=== PATIENT | female | born 1995 ===

== ENCOUNTER 2021-11-15 20:44 | Emergency (ER) | payer SELFPAY ==
--- NOTE | ~2021-11-15 | XR_ITS ---
EXAMINATION: XR PORTABLE CHEST CLINICAL INFORMATION: Cough COMPARISON: None. TECHNIQUE: AP portable upright view of the chest FINDINGS: Mild elevation of the right hemidiaphragm. Lungs are clear. No consolidation, pneumothorax, or pleural effusion. Cardiac and mediastinal contours are normal. Pulmonary vasculature is unremarkable. Osseous structures are unremarkable. XR/XR chest 1V IMPRESSION: No acute cardiopulmonary findings
--- NOTE | ~2021-11-15 | CT_ITS ---
EXAMINATION: CT ANGIOGRAM OF THE CHEST WITH AND WITHOUT CONTRAST (CT PULMONARY ANGIOGRAM FOR PE) CLINICAL INFORMATION: Reason for Exam sob, positive dimer. COMPARISON: Chest radiograph 11/15/2021. TECHNIQUE: Prior to contrast administration, noncontrast localization images were obtained. Subsequently, multidetector volumetric imaging was performed from the thoracic inlet to below the diaphragms following the administration of 80 mL Omnipaque 350 intravenous contrast. No contrast reaction reported Sagittal, coronal, and MIP oblique sagittal reformatted images were obtained on the CT workstation, uploaded to PACS, and reviewed. This CT examination was performed using dose optimization techniques as appropriate, variously including the following: *Automated exposure control *Adjustment of mA and/or kV according to patient size (this includes techniques or standardized protocols for targeted exams where dose is matched to indication/reason for exam; i.e. extremities or head) *Use of iterative reconstruction technique Total exam dose-length product 590 mGy-cm FINDINGS: QUALITY OF STUDY/CONTRAST BOLUS: Satisfactory. PULMONARY ARTERIES: No intraluminal filling defects are noted in the visualized pulmonary arterial segments to suggest the presence of pulmonary bullae. The main and central pulmonary arteries are normal in caliber. THORACIC AORTA: No aneurysm or dissection. Lungs and pleura: No pleural effusions or pneumothoraces. No focal pulmonary consolidation. Mediastinum: The thyroid is partially included in the image [id number] and is normal in appearance. No mediastinal lymphadenopathy. Normal heart size. No pericardial thickening or fluid collections. The incidentally visualized abdominal structures, partial visualization of a 2 cm diameter eggshell calcification within the gallbladder lumen consistent with cholelithiasis. Normal appearance of the adrenal glands. Skeletal structures: No skeletal abnormalities noted aside from mild multilevel chronic appearing anterior endplate osteophytosis of the visualized spine. CHEST WALL: No axillary lymphadenopathy. CT/CT angio chest PE protocol IMPRESSION: *CT pulmonary angiogram negative for pulmonary emboli. *No acute cardiopulmonary abnormalities identified. Lungs clear. *Cholelithiasis. VTE: negative
[2021-11-15 20:51] VITALS: BP 147/81; PULSE 88; RESP 20; TEMP 36.5; O2SAT 99; BMI 49.6
--- NOTE | 2021-11-15 21:12 | ED_ITS ---
HPI - URI/Sore Throat General Chief Complaint: Upper Respiratory Symptoms Stated Complaint: Flu like symptoms/Vomiting Time Seen by Provider: 11/15/21 21:06 Source: patient Mode of arrival: ambulatory Limitations: no limitations History of Present Illness HPI Narrative: This is a 26-year-old female no significant medical history presenting to the emergency department with complaints of body aches, dry cough, nausea, sore throat, myalgias since Thursday 4 days ago. Patient tells me she went to urgent care on Thursday, 3 days ago where she tested positive for influenza A. She tells me that she was started on Tamiflu that day however she still feels ?horrible and she feels like she is not getting better. She also reports associated shortness of breath and chest discomfort. Patient has no history of cardiac issues, DVT, PE. Denies hormone use. Denies long travel. She also denies fevers, chills, vomiting, abdominal pain, headache, dizziness, vision changes, weakness. Patient eating and drinking. MD elicited complaint: fever and sore throat Onset (ago): day(s) (4) Consistency: constant Able to tolerate fluids by mouth: Yes Exacerbating factors: nothing Relieving factors: nothing Associated symptoms: chest pain and shortness of breath Treatments prior to arrival: none Related Data Previous Rx's Medication Instructions Recorded albuterol sulfate 90 mcg/actuation 2 inh INHALATION Q4-6H PRN #1 ea 11/16/21 breath activated powder inhaler benzonatate 100 mg capsule 100 mg PO BID PRN #20 cap 11/16/21 Allergies Allergy/AdvReac Type Severity Reaction Status Date / Time No Known Allergies Allergy Unverified 04/05/20 19:47 [No Known Allergies*] Review of Systems Review of Systems: Constitutional : No Weight loss, No Fever, No Chills, + Fatigue, N+o Malaise ENT/Mouth : + sore throat, No Rhinorrhea Eyes: No Eye Pain, No Swelling, No Redness Cardiovascular : + Chest Pain, + SOB, No Dyspnea on Exertion, No Orthopnea, No Edema, No Palpitations Respiratory : No Cough, No Sputum, No Wheezing Gastrointestinal : No Nausea, No Vomiting, No Diarrhea, No Constipation, No abdominal Pain, No Hematochezia, No Melena Genitourinary : No Dysuria, No Urinary Frequency, No Hematuria, Musculoskeletal : No joint pain, No Myalgias, No Joint Swelling Skin : No Skin Lesions, No rash Neuro : No Weakness, No Numbness, No Dizziness, No Headache All other systems reviewed and are negative Yes all other systems are reviewed and are negative [facility] Past Medical History Attestation statement: The following information was validated with the patient. Source: old records reviewed and nursing notes reviewed Social History Social History Alcohol intake: never Patient Tobacco Use Status: Never used Tobacco Advance Directives: No Advance Directives Information Provided: No Physical Exam Vital Signs: Vital Signs: Last Vital Signs Temp 97.7 F 11/15/21 20:51 Pulse 79 11/15/21 23:25 Resp 18 11/15/21 23:25 BP 132/65 11/15/21 23:25 Pulse Ox 97 11/15/21 23:25 BMI result Body Mass Index 49.6 Vital signs stable Appearance: Alert.? Oriented X3.? No acute distress.? Head: Normocephalic, atraumatic, no step-offs or deformities Eyes: Pupils equal, round and reactive to light.? ENT: Pharynx normal.? Neck: Normal inspection.? Neck supple.? CVS: Normal heart rate and rhythm.? Pulses normal.? Respiratory: No respiratory distress.? Breath sounds normal.? Abdomen: Soft and nontender.? Skin: Skin warm and dry.? Normal skin color.? Normal skin turgor.? Extremities: No lower extremity edema.? No calf ttp, negative Ronnie bilaterally 5/5 strength to bilateral upper and lower extremities Back: No midline tenderness, no C-spine tenderness, full range of motion, no CVA tenderness bilaterally Neuro: Oriented X 3.? No motor deficit.? No sensory deficit. CN 2-12 intact Course Reevaluation(s) Reevaluation #1: CBC with a slight microcytic anemia, patient tells me that she gets very heavy m enses and she is currently on her menses right now. She is not complaining of dizziness, weakness or fatigue. I advised her to follow-up with her PCP for repeat lab work. She tells me she is currently having heavy vaginal bleeding which is normal for her, denies vomiting blood or blood per rectum, trauma, abdominal pain. No acute electrolyte abnormalities requiring intervention. Troponin negative. COVID, strep negative. Patient's D-dimer slightly elevated therefore a CTA was obtained, CTA showed no evidence of pulmonary emboli, no acute cardiopulmonary abnormalities. VT negative. Incidental finding of cholelithiasis noted. At this time patient will be discharged home symptoms likely secondary to influenza however, patient has been having a dry cough from most to week therefore will give her medication for cough, and an inhaler. Time: 00:23 MDM - URI/Sore Throat MDM Narrative Medical decision making narrative: 2119 26 yo f presents w/ flu like sx X4 days PE benign Plan- dimer, trop, ekg, labs, cxr Will rule out pna, pe, acs although all unlikley. Medical Records Attestation: I reviewed the patient's medical records. Lab Data Attestation: I reviewed the patient's lab results. Result diagrams: 11/15/21 22:49 11/15/21 22:49 Labs: Lab Results 11/15/21 11/15/21 11/15/21 Range/Units 21:38 21:38 22:49 WBC 7.1 (4.8-10.8) X10*3/uL RBC 4.48 (4.20-5.50) X10*6/uL Hgb 8.5 L (12.0-16.0) g/dl Hct 29.9 L (37.0-47.0) % MCV 66.7 L (80.0-98.0) fL MCH 19.0 L (27.0-33.0) pg MCHC 28.4 L (31.0-35.0) g/dl RDW 18.2 H (11.0-16.0) % Plt Count 322 (160-400) X10*3/uL MPV 8.7 L (9.4-12.3) fL Immature Gran % (Auto) 0.3 (0.0-0.4) % Neut % (Auto) 63.8 (45-73) % Lymph % (Auto) 27.9 (20-40) % Dickson % (Auto) 6.9 (2-11) % Eos % (Auto) 0.8 (0-4) % Baso % (Auto) 0.3 (0-2) % Lymph # (Auto) 2.0 (1.2-4.9) X10*3/uL Dickson # (Auto) 0.5 (0.1-1.2) X10*3/uL Eos # (Auto) 0.1 (0.0-0.4) X10*3/uL Baso # (Auto) 0.0 (0.0-0.2) X10*3/uL Abs Immat Gran (auto) 0.02 (0.00-0.03) X10*3/uL Absolute Neuts (auto) 4.6 (2.0-8.3) x10*3/uL Absolute Nucleated RBC 0.000 (0.0-0.012) X10*3/uL Nucleated RBC % (auto) 0.0 (0.0-0.2) /100WBC D-Dimer High Sensitivty NG/ML Sodium (135-145) mmol/L Potassium (3.3-5.1) mmol/L Chloride (96-108) mmol/L Carbon Dioxide (22-29) mmol/L Anion Gap (12-20) BUN (9-16) mg/dL Creatinine (0.5-1.4) mg/dL Estim Creat Clear Calc Estimated GFR Random Glucose (60-115) mg/dL Calcium (8.4-10.2) mg/dL Magnesium (1.6-2.6) mg/dL Total Bilirubin (0.0-1.0) mg/dL AST (5-31) U/L ALT (0-31) U/L Alkaline Phosphatase (39-117) U/L Troponin I High Sens (<3.5-17.0) ng/L Total Protein (6.5-8.0) g/dL Albumin (3.5-5.0) g/dL COVID-19 ([facility]AC[facility]) Negative (Negative) COVID-19 Clin Com See Note S. pyogenes GrpA ANA Negative (Negative) 11/15/21 11/15/21 11/15/21 Range/Units 22:49 22:49 22:49 WBC (4.8-10.8) X10*3/uL RBC (4.20-5.50) X10*6/uL Hgb (12.0-16.0) g/dl Hct (37.0-47.0) % MCV (80.0-98.0) fL MCH (27.0-33.0) pg MCHC (31.0-35.0) g/dl RDW (11.0-16.0) % Plt Count (160-400) X10*3/uL MPV (9.4-12.3) fL Immature Gran % (Auto) (0.0-0.4) % Neut % (Auto) (45-73) % Lymph % (Auto) (20-40) % Dickson % (Auto) (2-11) % Eos % (Auto) (0-4) % Baso % (Auto) (0-2) % Lymph # (Auto) (1.2-4.9) X10*3/uL Dickson # (Auto) (0.1-1.2) X10*3/uL Eos # (Auto) (0.0-0.4) X10*3/uL Baso # (Auto) (0.0-0.2) X10*3/uL Abs Immat Gran (auto) (0.00-0.03) X10*3/uL Absolute Neuts (auto) (2.0-8.3) x10*3/uL Absolute Nucleated RBC (0.0-0.012) X10*3/uL Nucleated RBC % (auto) (0.0-0.2) /100WBC D-Dimer High Sensitivty 372 NG/ML Sodium 140 (135-145) mmol/L Potassium 3.4 (3.3-5.1) mmol/L Chloride 106 (96-108) mmol/L Carbon Dioxide 27 (22-29) mmol/L Anion Gap 10 L (12-20) BUN 7 L (9-16) mg/dL Creatinine 0.62 (0.5-1.4) mg/dL Estim Creat Clear Calc 178.5 Estimated GFR > 60 Random Glucose 94 (60-115) mg/dL Calcium 8.9 (8.4-10.2) mg/dL Magnesium 2.1 (1.6-2.6) mg/dL Total Bilirubin 0.2 (0.0-1.0) mg/dL AST 28 (5-31) U/L ALT 25 (0-31) U/L Alkaline Phosphatase 93 (39-117) U/L Troponin I High Sens < 3.5 (<3.5-17.0) ng/L Total Protein 6.9 (6.5-8.0) g/dL Albumin 3.7 (3.5-5.0) g/dL COVID-19 (KACY) (Negative) COVID-19 Clin Com S. pyogenes GrpA ANA (Negative) ECG Data Attestation: I personally reviewed and interpreted this ECG as follows: ECG interpretation date: 11/15/21 ECG interpretation time: 23:21 Prior ECG tracings: available for review Critical Care Time Critical Care Time Critical Care Time: No Discharge Plan Discharge Clinical Impression: Cough, Shortness of breath, Anemia Patient Disposition: Home, Self-Care Instructions: Acute Cough (ED), Shortness of Breath (ED) Additional Instructions: Take your medications as prescribed. Follow-up with your primary care provider this week, I advised you get for repeat laboratory studies to look at your hemoglobin and hematocrit. Follow-up with OBGYN for heavy menses. Return to the emergency department with new or worsening symptoms. Such as fevers, chills, chest pain, shortness of breath, nausea, vomiting, dizziness, headache, vision changes, lethargy In case of emergency call 911 Your CTA showed no evidence of blood clots in the lungs. Your cardiac enzymes and EKG appeared normal. You were noted to be slightly anemic however you did report heavy vaginal bleeding from your menses which is normal for you I advised he follow up with OBGYN and your PCP. If at any point you become lightheaded, if he were bleeding through more than 2 pads per hour, weakness, vision changes or dizziness it is important that you be re-evaluated. Your COVID test and strep test were negative. I will send medication to her pharmacy for cough. Pl ease take this as prescribed. Increase meat in your diet and take over the counter iron supplements/vitamins. You in take ibuprofen every 6 hours, Tylenol every 4 as needed for body aches and pains or fever. Prescriptions: New albuterol sulfate 90 mcg/actuation aerosol powdr breath activated 2 inh inhalation Q4-6H PRN (Reason: shortness of breath or wheezing) Qty: 1 0RF benzonatate 100 mg capsule 100 mg PO BID PRN (Reason: cough) Qty: 20 0RF Referrals: Physician,None [Primary Care Provider] - 2 days Stand Alone Forms: Work/School Release
[2021-11-15 21:32] VITALS: O2SAT 100
[2021-11-15] MEDS: Ondansetron ODT 4 MG TAB.RAPDIS TRANSLINGU (21:35)
[2021-11-15 22:03] LABS: COVID-19 Test Negative (Negative); Strep A Nucleic Acid Negative (Negative)
--- NOTE | 2021-11-15 22:30 | ECG_ITS ---
Test Reason : SOB Blood Pressure : / mmHG Vent. Rate : 070 BPM Atrial Rate : 070 BPM P-R Int : 154 ms QRS Dur : 090 ms QT Int : 390 ms P-R-T Axes : 029 000 011 degrees QTc Int : 421 ms Normal sinus rhythm Minimal voltage criteria for LVH, may be normal variant ( R in aVL ) Borderline ECG No previous ECGs available Referred By: Katiana Szymanski Electronically Signed By:TERA ESTRADA
[2021-11-15 22:54] LABS: MANUAL DIFF FLAG NO
[2021-11-15 22:55] LABS: Basophils Percent Auto 0.3 % (0-2); Eosinophils Absolute Auto 0.1 X10*3/uL (0.0-0.4); Eosinophils Percent Auto 0.8 % (0-4); Hematocrit 29.9 % (37.0-47.0); Hemoglobin 8.5 g/dl (12.0-16.0); Imm Gran Abs Auto 0.02 X10*3/uL (0.00-0.03); Imm Gran Pct Auto 0.3 % (0.0-0.4); Lymphocytes Percent Auto 27.9 % (20-40); Mean Corpuscular HGB Conc 28.4 g/dl (31.0-35.0); Mean Corpuscular Volume 66.7 fL (80.0-98.0); Mean Platelet Volume 8.7 fL (9.4-12.3); Monocytes Absolute Auto 0.5 X10*3/uL (0.1-1.2); Monocytes Percent Auto 6.9 % (2-11); Neutrophils Absolute Auto 4.6 x10*3/uL (2.0-8.3); Neutrophils Percent Auto 63.8 % (45-73); Platelet Count 322 X10*3/uL (160-400); Red Blood Count 4.48 X10*6/uL (4.20-5.50); Red Cell Distribution Width 18.2 % (11.0-16.0); White Blood Count 7.1 X10*3/uL (4.8-10.8)
[2021-11-15 23:06] LABS: D Dimer High Sensitivity 372 NG/ML
[2021-11-15 23:14] LABS: Alanine Aminotransferase 25 U/L (0-31); Albumin Level 3.7 g/dL (3.5-5.0); Alkaline Phosphatase 93 U/L (39-117); Anion Gap 10 (12-20); Aspartate Amino Transferase 28 U/L (5-31); Bilirubin Total 0.2 mg/dL (0.0-1.0); Blood Urea Nitrogen 7 mg/dL (9-16); Calcium 8.9 mg/dL (8.4-10.2); Carbon Dioxide 27 mmol/L (22-29); Chloride 106 mmol/L (96-108); Creatinine Clr Calc Pharmacy 178.5; Estimated Glomerular Filt Rate > 60; Glucose Random 94 mg/dL (60-115); Magnesium 2.1 mg/dL (1.6-2.6); Potassium 3.4 mmol/L (3.3-5.1); Sodium 140 mmol/L (135-145); Total Protein 6.9 g/dL (6.5-8.0)
[2021-11-15 23:17] LABS: Troponin-I High Sensitivity < 3.5 ng/L (<3.5-17.0)
[2021-11-15 23:25] VITALS: BP 132/65; PULSE 79; RESP 18; O2SAT 97
[2021-11-15] MEDS: iohexoL 350 MG/ML 100 ML INFUS..BTL IV (23:52)
[2021-11-16 00:38] VITALS: BP 115/58; PULSE 80; RESP 18; TEMP 36.7; O2SAT 98
[2021-11-16] MEDS: Albuterol Sulfate 90 MCG 8 GM INHALER 2 PUFF INHALE (00:39)
== END 2021-11-16 00:44 | disposition home or self-care (01) ==
PROVIDERS: Physician Assistant; Emergency Provider Emergency Medicine Emergency Medical Services
DX: R05.9 Cough, unspecified (principal); M79.10 Myalgia, unspecified site; R06.02 Shortness of breath; R07.89 Other chest pain; D64.9 Anemia, unspecified; Z20.822 Contact with and (suspected) exposure to COVID-19; Z79.899 Other long term (current) drug therapy
CPT/HCPCS: 36415; 71045; 71275; 80053; 83735; 84484; 85025; 85379; 87635; 87651; 93005; 99284; 99285; Q9967

== ENCOUNTER → 2022-02-07 12:13 | Outpatient (BNVA) | payer OTHER, SELFPAY | PROVIDERS: Visit Provider Internal Medicine | DX: M25.532 Pain in left wrist (principal); M67.432 Ganglion, left wrist | CPT/HCPCS: 29125; 73110; 99203 ==

== ENCOUNTER → 2022-02-17 15:18 | Outpatient (BNVA) | payer OTHER, SELFPAY | PROVIDERS: Visit Provider Internal Medicine | DX: M25.531 Pain in right wrist (principal); M67.40 Ganglion, unspecified site | CPT/HCPCS: 99213 ==

== ENCOUNTER → 2023-09-29 15:10 | Outpatient (BNVA) | payer OTHER, SELFPAY | PROVIDERS: Visit Provider Surgery ==

== ENCOUNTER → 2023-11-02 10:00 | Outpatient (BNVA) | payer OTHER, SELFPAY | PROVIDERS: Visit Provider Surgery ==

== ENCOUNTER 2023-11-03 07:56 | Outpatient (REF) | payer OTHER, SELFPAY ==
--- NOTE | ~2023-11-03 | XR_ITS ---
EXAMINATION: XR CHEST CLINICAL INFORMATION: Gastroesophageal reflux disease without esophagitis. COMPARISON: CT angiogram chest 11/15/2021. Single view radiograph chest 11/15/2021. TECHNIQUE: 2 views of the chest were obtained. FINDINGS: Lung volumes remain low. There is no gross pneumothorax. Heart size is normal. No pleural effusion. No focal consolidation to suggest pneumonia. XR/XR chest 2V IMPRESSION: Low lung volumes. No evidence of pneumonia.
--- NOTE | 2023-11-03 08:03 | ECG_ITS ---
Test Reason : gerd Blood Pressure : / mmHG Vent. Rate : 061 BPM Atrial Rate : 061 BPM P-R Int : 146 ms QRS Dur : 084 ms QT Int : 388 ms P-R-T Axes : 056 009 025 degrees QTc Int : 390 ms Normal sinus rhythm Normal ECG When compared with ECG of 15-NOV-2021 22:45, No significant change was found Referred By: Jeanmarie Shultz Electronically Signed By:TERA ESTRADA
[2023-11-03 08:18] LABS: MANUAL DIFF FLAG NO
[2023-11-03 09:09] LABS: Basophils Percent Auto 0.8 % (0-2); Eosinophils Absolute Auto 0.1 X10*3/uL (0.0-0.4); Eosinophils Percent Auto 1.7 % (0-4); Imm Gran Abs Auto 0.02 X10*3/uL (0.00-0.03); Imm Gran Pct Auto 0.4 % (0.0-0.4); Lymphocytes Absolute Auto 1.3 X10*3/uL (1.2-4.9); Lymphocytes Percent Auto 24.3 % (20-40); Mean Corpuscular Hemoglobin 19.6 pg (27.0-33.0); Mean Corpuscular Volume 67.5 fL (80.0-98.0); Monocytes Absolute Auto 0.4 X10*3/uL (0.1-1.2); Monocytes Percent Auto 6.6 % (2-11); Neutrophils Absolute Auto 3.5 x10*3/uL (2.0-8.3); Neutrophils Percent Auto 66.2 % (45-73); Platelet Count 243 X10*3/uL (160-400); Red Blood Count 4.59 X10*6/uL (4.20-5.50); Red Cell Distribution Width 19.1 % (11.0-16.0); White Blood Count 5.3 X10*3/uL (4.8-10.8)
[2023-11-03 09:10] LABS: Estimated Average Glucose 108 mg/dL; Hemoglobin A1c % 5.4 % (<6.0)
[2023-11-03 10:09] LABS: Alanine Aminotransferase 14 U/L (0-31); Albumin Level 3.9 g/dL (3.5-5.0); Alkaline Phosphatase 57 U/L (39-117); Anion Gap 11 (12-20); Aspartate Amino Transferase 16 U/L (5-31); Bilirubin Total 0.4 mg/dL (0.0-1.0); Blood Urea Nitrogen 11 mg/dL (9-16); C Reactive Protein 0.46 mg/dL (< or = 0.50); Calcium 9.4 mg/dL (8.4-10.2); Carbon Dioxide 25 mmol/L (22-29); Chloride 107 mmol/L (96-108); Cholesterol 125 mg/dL (<200); Estimated Glomerular Filt Rate > 60; Glucose Random 86 mg/dL (60-115); HDL Cholesterol 40 mg/dL (>40); Iron 15 mcg/dL (30-160); LDL Cholesterol Calculated 75 mg/dL (<100); Percent Iron Saturation 5 % (15-50); Potassium 3.8 mmol/L (3.3-5.1); Sodium 139 mmol/L (135-145); Total Iron Binding Capacity 320 mcg/dL (228-428); Total Protein 7.2 g/dL (6.5-8.0); Triglycerides 53 mg/dL (<150); Unsaturated Iron Binding 305 ug/dL
[2023-11-03 10:19] LABS: Ferritin 3 ng/mL (10-122); Insulin 7 uU/mL (2-29); TSH reflex Free T4 0.88 uIU/mL (0.32-4.0); Vitamin D 25-OH Total 20.9 ng/mL (>30)
[2023-11-03 10:26] LABS: Folate 8.6 ng/mL (> or = 4.0); Vitamin B12 926 pg/mL (200-900)
[2023-11-06 01:29] LABS: Zinc 69 mcg/dL (60-130)
[2023-11-06 20:32] LABS: Vitamin A 27 mcg/dL (38-98)
[2023-11-08 14:53] LABS: Vitamin B1 8 nmol/L (8-30)
== END 2023-11-03 07:57 | disposition home or self-care (01) ==
LOC: HO.LAB 07:56
PROVIDERS: Visit Provider Surgery
DX: K21.9 Gastro-esophageal reflux disease without esophagitis (principal); E66.01 Morbid (severe) obesity due to excess calories; J45.909 Unspecified asthma, uncomplicated; M19.90 Unspecified osteoarthritis, unspecified site
CPT/HCPCS: 36415; 71046; 80053; 80061; 82306; 82607; 82728; 82746; 83036; 83525; 83540; 84425; 84443; 84590; 84630; 85025; 86140; 93005

== ENCOUNTER → 2023-11-03 08:03 | Outpatient (BNV) | payer OTHER, SELFPAY | PROVIDERS: Visit Provider Internal Medicine | DX: K21.9 Gastro-esophageal reflux disease without esophagitis (principal) | CPT/HCPCS: 93010 ==

== ENCOUNTER 2023-11-16 15:49 | Outpatient (AMB) | payer OTHER, SELFPAY ==
--- NOTE | 2023-11-16 15:47 | MHC.WMTHER ---
Intake Intake Visit Reasons: TV BH Intake Allergies No Known Allergies [No Known Allergies*] Allergy (Verified 11/02/23 16:43) PFSH Medical History (Updated 11/16/23 @ 16:03 by Maday Chi) DJD (degenerative joint disease) Asthma GERD (gastroesophageal reflux disease) Morbid obesity Surgical History (Updated 09/29/23 @ 15:20 by Rita Escobar CMA) No history of previous surgery Family History (Updated 09/29/23 @ 15:21 by Rita Escobar CMA) Mother Diabetes Father No problems noted. Social History Alcohol intake: never Patient Tobacco Use Status: Never used Tobacco Behavioral Health Assessment Weight Management Therapy Therapy Notes Details Patient is looking to have weight loss surgery to help herself feel better. Also improved health outcomes. She is currently not in therapy and denied ever being so. She denied any problems with drugs or alcohol. Later reported smoking 3 joints and also using a vaporizer. he had quit for 5 years in the past. Presenting Concerns Referral Source provider Reason for referral weight loss surgery evaluation Precipitating Event obesity Living Situation Current Living Situation Relative's/Guardian's Yunior At risk of losing current housing? No Satisfied with current living situation? Yes Comments Pt lives at her parents house and her sister also resides there. Food/Weight/Diet Expectations of change weight loss and maintenance History/Relationship with food Patient stated that she was eating fast food about everyday, also would skip meals in the morning and then overeat at night. History/Relationship with weight Patient reported struggling with her weight since around age 18. History/Relationship with dieting some informal dieting in the past and lost 10lbs. Binge Eating Do you frequently eat large amounts of food in short periods of time, not feeling physically hungry? Yes Do you feel out of control when you eat a large amount of food in a short period of time? No Do you eat large amounts of food rapidly and typically alone? Yes Night Eating Do you wake up at least once during the night to eat? No If you wake up in the night, do you find that it is necessary to eat something in order to fall back asleep? No Do you have little or no appetite in the morning and feel very hungry in the evening, often overeating between dinner and when you go to bed? Yes Social History Parental/Familial dip dyer obligations none Developmental history and status no issues Social support mom, two sisters, and ex partner all have had gastric sleeve surgeries. Cultural/Ethnic information Legal Involvement and History Current or historical involvement with the legal system? none reported Education Highest grade completed high school Preferred learning style Auditory, Verbal, Written, Learn by doing and Visual Currently enrolled in educational program? No Interested in further educational program? 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 No Meaningful activities gym, Financial Situation Describe current financial situation Comfortable Service Service? No Mental Health and Addiction Treatment Current/Past substance abuse? Yes Comments smokes cannabis daily Current/Past addictive behavior concerns? No Medical and Physical Health Summary Physical exam in the last year? Yes Pain Screening Current pain? No Pain in the last few months? No Medications Is the patient compliant with medications? Not applicable Does the patient have Purvis Guardian in place? Not applicable Does the patient use complimentary health approaches? No Trauma/Abuse History History of trauma? No Questionnaires PHQ-9 Over the last 2 weeks, how often have you been bothered by any of the following problems? 1. Little interest or pleasure in doing things: several days 2. Feeling down, depressed, or hopeless: several days 3. Trouble falling or staying asleep, or sleeping too much: several days 4. Feeling tired or having little energy: not at all 5. Poor appetite or overeating: not at all 6. Feeling bad about yourself - or that you are a failure or have let yourself or your family down: more than half the days 7. Trouble concentrating on things, such as reading the newspaper or watching television: not at all 8. Moving or speaking so slowly that other people could have noticed. Or the opposite - being so fidgety or restless that you have been moving around a lot more than usual: not at all 9. Thoughts that you would be better off or of hurting yourself in some way: not at all Total score: 5 Source: Developed by Drs. Piter Campos, Sherrie Eckert, Arnol Sanders and colleagues, with an educational juan from [employer]. Assessment & Plan Assessment & Plan (1) Cannabis abuse: Code(s): F12.10 - Cannabis abuse, uncomplicated (2) Morbid obesity: Code(s): E66.01 - Morbid (severe) obesity due to excess calories Plan Patient will be seen in person visit on 11/29 for further evaluation. Could not hear her well during call due to background noise. Also no paperwork scanned in the chart. Telehealth Telehealth Telehealth Platform: Telephone Location of provider rendering services: other Location of patient: other Patient Identification confirmed using: Name, : Yes Telehealth method: voice only Patient verbally consented to treatment: Yes Patient verbally consented to billing insurance company: Yes Patient informed of any privacy concerns related to visit: Yes Minutes spent on Phone/Video with Pt.: 30 Coding Level of Care Code Tele Psy Diag Eval (30214) Diagnoses Cannabis abuse F12.10 Morbid obesity E66.01 Time Spent (min) 30
== END 2023-11-16 16:05 | disposition home or self-care (01) ==
LOC: HO.HBST 15:49
PROVIDERS: Visit Provider Counselor Mental Health
DX: F12.10 Cannabis abuse, uncomplicated (principal); E66.01 Morbid (severe) obesity due to excess calories
CPT/HCPCS: 90791

== ENCOUNTER → 2023-11-16 15:49 | Outpatient (BNVA) | payer OTHER, SELFPAY | PROVIDERS: Visit Provider Counselor Mental Health ==

== ENCOUNTER 2023-11-23 07:46 | Outpatient (REF) | payer OTHER, SELFPAY ==
--- NOTE | ~2023-11-23 | US_ITS ---
EXAMINATION: US COMPLETE ABDOMEN WITH LIVER ELASTOGRAPHY CLINICAL INFORMATION: Obesity. COMPARISON: None available. TECHNIQUE: Real-time imaging of the abdominal viscera. Noninvasive ultrasound liver fibrosis assessment is performed using Td ElastPQ point quantification shear wave elastography (2D-SWE) with a C5-2 MHz transducer. Multiple elastography samples are obtained. FINDINGS: PANCREAS: Limited. The visualized pancreatic neck and proximal body are normal in appearance. The remainder of the pancreas is obscured from visualization by the overlying bowel gas. ABDOMINAL AORTA: The proximal and distal aortic segments are normal in caliber. The mid segment is obscured by overlying bowel gas. INFERIOR VENA CAVA: Visualized portions are normal. LIVER: The liver demonstrates normal size, contour and mildly increased echogenicity. No focal lesion or intrahepatic biliary duct dilatation. The right lobe measures 14.0 cm in length. The left lobe measures 9.5 cm in length. Portal flow is towards the liver (hepatopetal). Shear wave liver elastography median stiffness is 1.96 m/s (reference: normal median stiffness is 1.3 m/s or less). IQR/median stiffness to assess sampling precision is 0.12 (reference: good quality data set is IQR/median stiffness of 0.15 or less). GALLBLADDER: There are shadowing gallstones, without gallbladder sludge, polyps, wall thickening or pericholecystic fluid. COMMON BILE DUCT: Normal in caliber measuring 0.3 cm in diameter. RIGHT KIDNEY: Normal. No hydronephrosis. No renal calculi or focal parenchymal lesions. The kidney measures 11.3 cm in maximum dimension. LEFT KIDNEY: Normal. No hydronephrosis. No renal calculi or focal parenchymal lesions. The kidney measures 11.0 cm in maximum dimension. SPLEEN: Normal. The spleen measures 12.2 cm in maximum dimension. FREE FLUID: None. US/US abdomen comp w elastography IMPRESSION: 1. There is mild generalized increase in hepatic echotexture, consistent with fatty infiltration or hepatocellular disease. Please correlate clinically. No focal hepatic mass or intrahepatic biliary dilatation is seen. 2. Liver elastography: Measuremensts are consistent with compensated advanced chronic liver disease. 3. There is cholelithiasis. 4. Technically limited ultrasound examination of the pancreas and abdominal great vessels. REFERENCE: Society of Radiologists in Ultrasound Liver Stiffness Thresholds (2020): LIVER STIFFNESS THRESHOLDS: *Liver Stiffness equal or less than 1.3 m/s: High probability of being normal. *Liver Stiffness less than 1.7 m/s: In the absence of other known clinical signs, rules out compensated advanced chronic liver disease. *Liver Stiffness 1.7-2.1 m/s: Suggestive of compensated advanced chronic liver disease but need further test for confirmation. *Liver Stiffness over 2.1 m/s: Rules in compensated advanced chronic liver disease. *Liver Stiffness over 2.4 m/s: Suggestive of clinically significant portal hypertension. QUALITY OF DATA SET: *IQR/Median value equal or less than 0.15 implies a quality data set. *IQR/Median value over 0.15 implies a poor quality data set. SIGNIFICANT CHANGE FROM PRIOR EXAM: Significant change if liver stiffness measurement is 10% or greater from prior exam. OTHER CONSIDERATIONS: The stage of liver fibrosis may be overestimated in the setting of acute hepatitis, liver inflammation, elevated liver function tests, hepatic vascular congestion, obstructive cholestasis, non-fasting state, and infiltrative diseases such as amyloidosis and lymphoma. In some patients with NAFLD, the liver stiffness thresholds for compensated advanced chronic liver disease may be lower. In causes other than viral hepatitis and NAFLD, liver stiffness thresholds are not well established.
== END 2023-11-23 07:47 | disposition home or self-care (01) ==
LOC: HO.US 07:46
PROVIDERS: Visit Provider Surgery
DX: K21.9 Gastro-esophageal reflux disease without esophagitis (principal); E66.01 Morbid (severe) obesity due to excess calories; J45.909 Unspecified asthma, uncomplicated
CPT/HCPCS: 76700; 76981

== ENCOUNTER 2023-11-25 06:25 | Day surgery (SDC) | payer OTHER, SELFPAY ==
[2023-11-23 11:03] VITALS: BMI 44.3
--- NOTE | 2023-11-23 14:42 | HO.ANESPROP2 ---
Documented by User: Teresa Shell NP 11/23/23 14:43 HPI - Anesthesia Eval Consult details Narrative: 28yo F for Upper Endoscopy [facility] Active Problems Active Problems: All Active Problems Vitamin A deficiency (Acute) Cannabis abuse (Acute) Vitamin D deficiency (Acute) DJD (degenerative joint disease) (Acute) Asthma (Acute) GERD (gastroesophageal reflux disease) (Acute) Morbid obesity (Acute) Past Medical History Medical History DJD (degenerative joint disease) Asthma GERD (gastroesophageal reflux disease) Morbid obesity Family History Family History Mother Diabetes Father No problems noted. Surgical History Surgical History No history of previous surgery Social History Social History Alcohol intake: never Patient Tobacco Use Status: Never used Tobacco Use of substances other than those prescribed or required for medical reasons: No Are you DNR?: No Advance Directives: No Advance Directives Information Provided: Yes Meds Allergies Allergy/AdvReac Type Severity Reaction Status Date / Time No Known Allergies Allergy Verified 11/25/23 06:53 [No Known Allergies*] Home Medications ?Medication ?Instructions ?Recorded ?Confirmed ?Last Taken ?Type famotidine 40 mg tablet 40 mg PO DAILY 11/02/23 11/25/23 11/24/23 History Exam Height,Weight and Vital Signs: Height 5 ft 3 in Weight 113.398 kg Assessment and Plan Assessment Anesthesia Assessment: Chart Reviewed Documented by User: Giovana Rojas MD 11/25/23 07:19 [facility] Past Medical History Medical History DJD (degenerative joint disease) Asthma GERD (gastroesophageal reflux disease) Morbid obesity Family History Family History Mother Diabetes Father No problems noted. Surgical History Surgical History No history of previous surgery History of Problems with Anesthesia: No Social History Social History Alcohol intake: never Patient Tobacco Use Status: Never used Tobacco Use of substances other than those prescribed or required for medical reasons: No Are you DNR?: No Advance Directives: No Advance Directives Information Provided: Yes Meds Allergies Allergy/AdvReac Type Severity Reaction Status Date / Time No Known Allergies Allergy Verified 11/25/23 06:53 [No Known Allergies*] Home Medications ?Medication ?Instructions ?Recorded ?Confirmed ?Last Taken ?Type famotidine 40 mg tablet 40 mg PO DAILY 11/02/23 11/25/23 11/24/23 History Exam Airway Mallampati Class: II TM Dist: >3cm Neck ROM: Full Loose/Missing/Broken Teeth: No Heart: RRR Lungs: CTA Assessment and Plan Assessment Anesthesia Assessment: Anesthesia Plan Discussed Final Anesthetic Review History of Problems with Anesthesia: No NPO: Yes ASA Class: III Final Preanesthetic Review: Meds/Allgs Chart Reviewed, Consent Obtained/Reviewed and Anes Risks/Benef Reviewed Patient Risk: Intermediate Procedure Risk: Intermediate Anesthetic Plan Anesthetic Plan: MAC: Disposition: Standard PACU
[2023-11-25 06:43] VITALS: BMI 40.2
[2023-11-25 06:57] LABS: UPreg QC Valid YES
[2023-11-25 06:58] LABS: Urine Pregnancy NEGATIVE (NEGATIVE)
[2023-11-25 07:03] VITALS: BP 125/69; PULSE 65; RESP 16; TEMP 35.7; O2SAT 98
[2023-11-25] MEDS: Lactated Ringers 1,000 ML 80 ML IVCONT (07:05)
--- NOTE | 2023-11-25 07:48 | MHC.SHP ---
Pre-Procedural Eval Section A - 24 Hr Update-Section A only Date of Service: 11/25/23 The patient is an INPATIENT: No The patient has been examined within 24 hours of the surgical procedure. The History & Physical has been completed within 30 days and I have reviewed it.: No Section B - Complete if H&P > 30 days Chief Complaint: Morbid (severe) obesity due to excess calories Details of Present Illness: GERD Relevant Family History (Specify if Yes): No Relevant Social History: None Present Medications: None Medical History: No relevant PMH History of Previous Operations: No relevant previous surgery Allergies: Allergies Allergy/AdvReac Type Severity Reaction Status Date / Time No Known Allergies Allergy Verified 11/25/23 06:53 [No Known Allergies*] Review of Systems Sugical H&P ROS: Negative: Constitution, Cardiovascular, Respiratory, Neurological, Psychiatric, Hem-Onc, Allergic/Immunologic, Gastrointestinal, Genitourinary, Musculoskeletal, Integumentary, Endocrine and Eyes/Ears/Nose/Throat Exam Surgical H&P Exam: Normal: HEENT, Normal: Heart, Normal: Lungs, Normal: Extremities, Normal: Abdomen, Normal: Skin and Normal: Neurological Plan Diagnosis/Plan: Unchanged (EGD to assess etiology of GERD. Risks of bleeding and perforation were discussed with the patient and he is in agreement with the plan.) I have reviewed the history and physical and performed a pertinent physical examination on my patient. No changes have occurred unless specified. Time Spent With Patient Time: Total time managing care of this patient today ____ minutes.
--- NOTE | 2023-11-25 08:10 | PM.OP ---
Brief Operative Note Date of Service: 11/25/23 Pre-op diagnosis: GERD Post-op diagnosis: same Procedure: PROCEDURE DATE: 11/25/2023 PREOPERATIVE DIAGNOSIS: GERD POSTOPERATIVE DIAGNOSIS: ?Same as above. 1) normal endoscopy PROCEDURE: Eikrvllh-ichpuz-mehkhrreypes with biopsies Surgeon: Cecilio Shultz M.D.. Ph.D. Physicist [place]: None ? Anesthesia: IV sedation Estimated blood loss: ?Minimal FINDINGS AND PROCEDURE: ? OPERATIVE INDICATIONS: ?The patient is a 28 year old female known to me who is interested in bariatric surgery. The patient has GERD. Based on this information I recommended an upper endoscopy to evaluate the patient's symptoms. Risks and complications of the surgery were discussed with the patient in advance particularly the possibility of perforation or bleeding that may require surgical intervention. The patient understood the risks and was in agreement with the plan. ? PROCEDURE: After informed consent was obtained by the patient, the patient was ?transferred to the Operating Room and was placed in the supine position.? After successful induction of IV sedation, a mouth block was inserted and the patient was placed in the left lateral decubitus position. An upper endoscopy was performed next, the oropharynx and esophagus appeared within the normal limits. There was no hiatal hernia. The z-line was smooth. Two biopsies were obtained from the distal esophagus 2-3 cm proximal to the GE junction and two additional biopsies from the GE junction. The stomach was entered and it appeared to be of normal size. There was no gastritis. There was no stricture or ulcer. A biopsy was obtained from the gastric fundus and antrum. No significant bleeding was noted from any of the biopsy sites. The scope was then advanced into the duodenum which appeared to be normal as well. Retroflexion of the scope revealed a normal GE junction. At that point the duodenum ?and the stomach were decompressed and the scope was withdrawn from the patient's mouth. The patient extubated and was transferred in stable condition to the Recovery Room for further care. I was present and performed all steps of the procedure. There were no residents to assist with this case. Adrian Shultz M.D., Ph.D. Surgeon: Jeanmarie Shultz MD Anesthesia: MAC Was an Physicist [place] used for this Procedure?: No Estimated blood loss (mL): 0 IV fluids (mL): 400 Urine output (mL): 0 (No Nation to record output) Pathology: other (1) antrum x1, 2) fundus x1, 3) GE junction x2, 4) distal esophagus x2) Condition: stable Disposition: PACU
[2023-11-25 08:16] VITALS: BP 118/65; PULSE 56; RESP 14; TEMP 36.1; O2SAT 98
[2023-11-25 08:41] VITALS: BP 128/75; PULSE 53; RESP 16; TEMP 36.2; O2SAT 100
== END 2023-11-25 08:54 | disposition home or self-care (01) ==
PROVIDERS: Nurse Practitioner; Visit Provider Surgery
PROC: 0DJ08ZZ Inspection of Upper Intestinal Tract, Via Natural or Artificial Opening Endoscopic (ICD-10-PCS; CPT 43235; principal; 2023-11-25 07:30)
DX: K21.9 Gastro-esophageal reflux disease without esophagitis (principal); E66.01 Morbid (severe) obesity due to excess calories; Z68.42 Body mass index [BMI] 45.0-49.9, adult; J45.909 Unspecified asthma, uncomplicated; M19.90 Unspecified osteoarthritis, unspecified site; Z79.899 Other long term (current) drug therapy
CPT/HCPCS: 43239; 81025; 88305; 88313; 88342; J1596; J2250; J2704

== ENCOUNTER → 2023-11-25 06:25 | Outpatient (BNV) | payer OTHER, SELFPAY | PROVIDERS: Visit Provider Surgery | DX: E66.01 Morbid (severe) obesity due to excess calories (principal); Z68.41 Body mass index [BMI] 40.0-44.9, adult; K21.9 Gastro-esophageal reflux disease without esophagitis | CPT/HCPCS: 43239 ==

== ENCOUNTER 2023-12-15 15:19 | Outpatient (AMB) | payer OTHER, SELFPAY ==
--- NOTE | 2023-12-15 14:11 | A.OFFWM_ITS ---
Intake Intake Visit Reasons: (TV) f/u Allergies No Known Allergies [No Known Allergies*] Allergy (Verified 11/25/23 06:53) FORMERLY [facility] Medical History DJD (degenerative joint disease) Asthma GERD (gastroesophageal reflux disease) Morbid obesity Surgical History No history of previous surgery Family History Mother Diabetes Father No problems noted. Social History Alcohol intake: never Patient Tobacco Use Status: Never used Tobacco Behavioral Health Assessment Weight Management Therapy Therapy Notes Details Patient is looking to have weight loss surgery to help herself feel better. Also improved health outcomes. She is currently not in therapy and denied ever being so. She denied any problems with drugs or alcohol. Later reported smoking 3 joints and also using a vaporizer. he had quit for 5 years in the past. Presenting Concerns Referral Source provider Reason for referral weight loss surgery evaluation Precipitating Event obesity Living Situation Current Living Situation Relative's/Guardian's [place] At risk of losing current housing? No Satisfied with current living situation? Yes Comments Pt lives at her parents house and her sister also resides there. Food/Weight/Diet Expectations of change weight loss and maintenance History/Relationship with food Patient stated that she was eating fast food about everyday, also would skip meals in the morning and then overeat at night. History/Relationship with weight Patient reported struggling with her weight since around age 18. History/Relationship with dieting some informal dieting in the past and lost 10lbs. Binge Eating Do you frequently eat large amounts of food in short periods of time, not feeling physically hungry? Yes Do you feel out of control when you eat a large amount of food in a short period of time? No Do you eat large amounts of food rapidly and typically alone? Yes Night Eating Do you wake up at least once during the night to eat? No If you wake up in the night, do you find that it is necessary to eat something in order to fall back asleep? No Do you have little or no appetite in the morning and feel very hungry in the evening, often overeating between dinner and when you go to bed? 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 Cultural/Ethnic information Legal Involvement and History Current or historical involvement with the legal system? none reported Education Highest grade completed high school Preferred learning style Auditory, Verbal, Written, Learn by doing and Visual Currently enrolled in educational program? No Interested in further educational program? 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 No Meaningful activities gym, Financial Situation Describe current financial situation Comfortable Service Service? No Mental Health and Addiction Treatment Current/Past substance abuse? Yes Comments smokes cannabis daily Current/Past addictive behavior concerns? No Medical and Physical Health Summary Physical exam in the last year? Yes Pain Screening Current pain? No Pain in the last few months? No Medications Is the patient compliant with medications? Not applicable Does the patient have Purvis Guardian in place? Not applicable Does the patient use complimentary health approaches? No Trauma/Abuse History History of trauma? No Questionnaires PHQ-9 Over the last 2 weeks, how often have you been bothered by any of the following problems? 1. Little interest or pleasure in doing things: not at all 2. Feeling down, depressed, or hopeless: not at all 3. Trouble falling or staying asleep, or sleeping too much: several days 4. Feeling tired or having little energy: not at all 5. Poor appetite or overeating: not at all 6. Feeling bad about yourself - or that you are a failure or have let yourself or your family down: several days 7. Trouble concentrating on things, such as reading the newspaper or watching television: not at all 8. Moving or speaking so slowly that other people could have noticed. Or the opposite - being so fidgety or restless that you have been moving around a lot more than usual: not at all 9. Thoughts that you would be better off or of hurting yourself in some way: not at all Total score: 2 Source: Developed by Drs. Piter Campos, Sherrie Eckert, Arnol Sanders and colleagues, with an educational juan from [employer]. Binge Eating Scale Group 1 A. I don't feel self-conscious about my wt. or body size when I'm with others. B. I feel concerned about how I look to others, but it normally does not make me fell disappointed with myself C. I do get self-conscious about my appearance and wt. which makes me feel disappointed in myself. D. I feel very self-conscious about my wt. and frequently I feel intense shame and disgust for myself. I try to avoid social contacts because of my self-consciousness. Response Group 1: D Group 2 A. I don't have any difficulty eating slowly in the proper manner. B. Although I seem to gobble down foods, I don't end up feeling stuffed because of eating to much. C. At times, I tend to eat quickly and then, I feel uncomfortably full afterw ards. D. I have the habit of bolting down my food, without really chewing it. When this happens I usually feel uncomfortably stuffed because I've eaten to much. Response Group 2: C Group 3 A. I feel capable to control my eating urges when I want to. B. I feel like I have failed to control my eating more than the average person. C. I feel utterly helpless when it comes to feeling in control of my eating urges. D. Because I feel so helpless about controlling my eating I have become very desperate about trying to get control. Response Group 3: A Group 4 A. I don't have the habit of eating when I'm bored. B. I sometimes eat when I'm bored, but often I'm able to get busy and get my mind off food. C. I have a regular habit of eating when I'm bored, but occasionally, I can use some other activity to get my mind off eating. D. I have a strong habit of eating when I'm bored. Nothing seems to help me breath the habit. Response Group 4: A Group 5 A. I'm usually physically hungry when I eat something. B. Occasionally, I eat something on impulse even though I really am not hungry. C. I have the regular habit of eating foods, that I might not really enjoy, to satisfy a hungry feeling even though physically, I don't need the food. D. Although I'm not physically hungry, I get a hungry feeling in my mouth that only seems to be satisfied when I eat a food, like sandwich, that fills my mouth. Sometimes, when I eat the food to satisfy my mouth hunger, I then spit the food out so I won't gain weight. Response Group 5: A Group 6 A. I don't feel any guilt or self-hate after I overeat. B. After I overeat, occasionally I feel guilt or self-hate. C. Almost all the time I experience strong guilt or self-hate after I overeat. Response Group 6: B Group 7 A. I don't lose total control of my eating when dieting even after periods when I overeat. B. Sometimes when I eat a forbidden food on a diet, I feel like I blew it and eat even more. C. Frequently, I have the habit of saying to myself, I've blown it now, why not go all the way, when I overeat on a diet. When that happens I eat more. D. I have a regular habit of starting a strict diets for myself but I break the diets by going on an eating binge. My life seems to be either a feast or famine. Response Group 7: B Group 8 A. I rarely eat so much food that I feel uncomfortably stuffed afterwards. B. Usually about once a month, I each such a quantity of food, I end up feeling very stuffed. C. I have regular periods during the month when I eat large amounts of food, either at mealtime or at snacks. D. I eat so much food that I regularly feel quite uncomfortable after eating and sometimes a bit nauseous. Response Group 8: C Group 9 A. My level of calorie intake does not go up very high or go down very low on a regular basis. B. Sometimes after I overeat, I will try to reduce my caloric intake to almost nothing to compensate for the excess calories I've eaten. C. I have a regular habit of overeating during the night. It seems that my routine is not to be hungry in the morning but overeat in the evening. D. In my adult years, I have had week-long periods where I practically starve myself. This follows periods when I overeat. It seems I live a life of either feast or famine. Response Group 9: D Group 10 A. I usually am able to stop eating when I want to. I know when enough is enough. B. Every so often, I experience a compulsion to eat which I can't seem to co ntrol. C. Frequently, I experience strong urges to eat which I seem unable to control, but at other times I can control my eating urges. D. I feel incapable of controlling urges to eat. I have a fear of not being able to stop eating voluntarily. Response Group 10: A Group 11 A. I don't have any problem stopping eating when I feel full. B. I usually can stop eating when I feel full but occasionally overeat leaving me feeling uncomfortably stuffed. C. I have a problem stopping eating once I start and usually I feel uncomfortably stuffed after I eat a meal. D. Because I have a problem not being able to stop eating when I want, I sometimes have to induce vomiting to relieve my stuffed feeling. Response Group 11: A Group 12 A. I seem to eat just as much when I'm with others, Family social gatherings as when I'm by myself. B. Sometimes, when I'm with other persons, I don't eat as much as I want to eat because I'm self-conscious about my eating. C. Frequently, I eat only a small amount of food when others are present, because I'm very embarrassed about my eating. D. I feel so ashamed about overeating that I pick times to overeat when I know no one will see me. I feel like a closet eater. Response Group 12: A Group 13 A. I eat three meals a day with only an occasional between meal snack. B. I eat 3 meals a day, but I also normally snack between meals. C. When I am snacking heavily, I get in the habit of skipping regular meals. D. There are regular periods when I seem to be continually eating, with no planned meals. Response Group 13: B Group 14 A. I don't think much about trying to control unwanted eating urges. B. At least some of the time, I feel my thoughts are pre-occupied with trying to control my eating urges. C. I feel that frequently I spend much time thinking about how much I ate or about trying not to eat anymore. D. It seems to me that most of my waking hours are pre-occupied by thoughts about eating or not eating. I feel like I'm constantly struggling not to eat. Response Group 14: C Group 15 A. I don't think about food a great deal. B. I have strong craving for food but they last only for brief periods of time. C. I have days when I can't seem to think about anything else but food. D. Most of my days seem to be pre-occupied with thoughts about food. I feel like I live to eat. Response Group 15: B Group 16 A. I usually know whether or not I'm physically hungry. I take the right portion of food to satisfy me. B. Occasionally, I feel uncertain about knowing whether or not I'm physically hungry. A these times it's hard to know how much food I should take to satisfy me. C. Even though I might know how many calories I should eat, I don't have any idea what is a normal amount of food for me. Response Group 16: B Binge Eating Score: 17 Score less than 17 Minimal Risk Score between 18-26 Moderate Risk Score between 27-46 High Risk Assessment & Plan Assessment & Plan (1) Cannabis abuse: Code(s): F12.10 - Cannabis abuse, uncomplicated (2) Morbid obesity: Code(s): E66.01 - Morbid (severe) obesity due to excess calories Plan Patient reported doing well, loosing weight, has more energy, some depression but has improved. She is cleared for surgery when ready. Telehealth Telehealth Telehealth Platform: Telephone Location of provider rendering services: other Location of patient: address on file Patient Identification confirmed using: Name, : Yes Telehealth method: voice only Patient verbally consented to treatment: Yes Patient verbally consented to billing insurance company: Yes Patient informed of any privacy concerns related to visit: Yes Minutes spent on Phone/Video with Pt.: 20 Coding Level of Care Code Tele Psytx 30 mins ([id number]) Diagnoses Cannabis abuse F12.10 Morbid obesity E66.01 Time Spent (min) 20
== END 2023-12-15 16:09 | disposition home or self-care (01) ==
LOC: HO.HBST 15:19
PROVIDERS: Visit Provider Counselor Mental Health
DX: F12.10 Cannabis abuse, uncomplicated (principal); E66.01 Morbid (severe) obesity due to excess calories
CPT/HCPCS: 90832

== ENCOUNTER → 2023-12-15 15:19 | Outpatient (BNVA) | payer OTHER, SELFPAY | PROVIDERS: Visit Provider Counselor Mental Health | DX: F12.10 Cannabis abuse, uncomplicated (principal); E66.01 Morbid (severe) obesity due to excess calories ==

== ENCOUNTER 2023-12-18 09:49 | Outpatient (REF) | payer OTHER, SELFPAY ==
--- NOTE | ~2023-12-18 | FL_ITS ---
EXAMINATION: XR FLUOROSCOPY UPPER GI WITH AIR CLINICAL INFORMATION: Reflux COMPARISON: None TECHNIQUE: Fluoroscopic air contrast upper GI examination was performed utilizing standard techniques with thin and thick barium and effervescent granules. Numerous spot images were obtained. FINDINGS: Dual and single contrast images of the esophagus demonstrate normal caliber, contour, and mucosal pattern. No evidence of stricture, mass, or ulcerations identified. Esophageal peristalsis was normal. No evidence of hiatus hernia identified. Significant gastroesophageal reflux is seen up to the thoracic inlet. Dual contrast and single contrast images of the stomach demonstrated normal contour and mucosal pattern without evidence of mass, ulceration, or other abnormality. Contrast freely passed into the gastric antrum and duodenal bulb without delay. Single and air-contrast images of the duodenal bulb demonstrate no abnormality. The duodenal sweep has a normal appearance, course, and mucosal fold appearance. The imaged proximal jejunum has a normal fold pattern and caliber. FLUOROSCOPY TIME: 2 minutes 34 seconds Number of Spot Images: 9 Number of Cine: 11 DOSE AREA PRODUCT: 1997 uGy-m2 (microgray-meter squared) FL/FL upper GI w air IMPRESSION: 1. Severe gastroesophageal reflux. This procedure was performed by Emile Espinoza PA-C, and supervised by Dr. Cruz
== END 2023-12-18 09:50 | disposition home or self-care (01) ==
LOC: HO.XRAY 09:49
PROVIDERS: Visit Provider Surgery
DX: K21.9 Gastro-esophageal reflux disease without esophagitis (principal); E66.01 Morbid (severe) obesity due to excess calories; J45.909 Unspecified asthma, uncomplicated
CPT/HCPCS: 74246

== ENCOUNTER → 2023-12-18 09:50 | Outpatient (BNV) | payer OTHER, SELFPAY | PROVIDERS: Visit Provider Physician Assistant Surgical | DX: K21.9 Gastro-esophageal reflux disease without esophagitis (principal); E66.01 Morbid (severe) obesity due to excess calories; Z01.818 Encounter for other preprocedural examination | CPT/HCPCS: 74246 ==

== ENCOUNTER → 2024-01-04 07:22 | Outpatient (BNVA) | payer OTHER, SELFPAY | PROVIDERS: Visit Provider Surgery ==

== ENCOUNTER 2024-01-04 08:12 | Outpatient (AMB) | payer OTHER, SELFPAY ==
--- NOTE | 2024-01-03 08:53 | MHC.OFFVISWM ---
VS Expanded 01/03/24 08:54 Height 5 ft 3 in Weight 216 lb BMI 38.3 Body Fat % 48.1 Body Fat Mass 103.8 Fat Free Mass 111.9 Visceral Fat Rating 19 Body Water % 35.5 Body Water Mass 76.7 Basal Metabolic Rate/Score 1,727 Intake Visit Reasons: TV Pre Op LSG 01/13/24 Allergies No Known Allergies [No Known Allergies*] Allergy (Verified 01/03/24 08:59) Medication List - Last Reconciled 01/03/24 by Jeanmarie Shultz MD albuterol sulfate 90 mcg/actuation 2 inhalations inhalation Q4-6H PRN cholecalciferol (vitamin D3) 125 mcg PO DAILY famotidine 40 mg PO DAILY iron,carbonyl-vitamin C 65 mg iron- 125 mg (Vitron-C) 1 tab PO DAILY ondansetron 4 mg PO Q12H pantoprazole 40 mg PO DAILY polyethylene glycol 3350 17 grams PO DAILY sucralfate 10 mL PO BID vitamin A palmitate 10,000 units PO DAILY HPI HPI TV Pre Op LSG 01/13/24: Details: Start time: 2pm, End time: 2.30pm ?I spent 25 minutes speaking with the patient on the phone plus an additional 5 minutes reviewing and updating records for a total of 30 minutes HPI Comments Details: Overall weight loss: 34.8lbs, or 13.9% TBWL Is doing 2 premade Premier shakes (1/2 bottle each), 2 Fit Crunch protein bars and one meal (8 forks each) Exercise: Gym x3-4/wk for 400 calories per work-out [facility] Medical History (Updated 01/03/24 @ 09:01 by Jeanmarie Shultz MD) Obesity DJD (degenerative joint disease) Asthma GERD (gastroesophageal reflux disease) Morbid obesity Surgical History No history of previous surgery Family History Mother Diabetes Father No problems noted. Social History Alcohol intake: never Patient Tobacco Use Status: Never used Tobacco Physical Exam Vital Signs: BMI result Body Mass Index 38.3 Telehealth Telehealth Telehealth Platform: Telephone Location of provider rendering services: practice address Location of patient: address on file Patient Identification confirmed using: Name, : Yes Telehealth method: voice only Patient verbally consented to treatment: Yes Patient verbally consented to billing insurance company: Yes Patient informed of any privacy concerns related to visit: Yes Minutes spent on Phone/Video with Pt.: 30 Assessment & Plan Assessment & Plan (1) Obesity: Code(s): E66.9 - Obesity, unspecified Category: Medical Qualifiers: Body mass index: BMI 38.0-38.9 Obesity classification: adult class 2 (BMI 35 - 39.9) Obesity type: due to excess calories Serious obesity comorbidity presence: with serious comorbidity Qualified Code(s): E66.01 - Morbid (severe) obesity due to excess calories; Z68.38 - Body mass index [BMI] 38.0-38.9, adult Plan: 1. Plan for lap sleeve gastrectomy including upper GI endoscopy. All tests has been completed and reviewed and the patient is cleared for the surgery. ?If diaphragmatic or ventral hernias are present at time of surgery, these will be repaired laparoscopically as well. Risks and complications were discussed in detail including possible conversion to an open procedure, anastomotic leak, bleeding requiring transfusion, small bowel obstruction, , DVT and pulmonary embolism, cardiac, or pulmonary complications, as rn long term care complications such as anastomotic ulcer, insufficient weight loss and vitamin deficiencies. I emphasized the importance of close follow-up, adherence to instructions and good communication. So far she has proven to be an excellent communicator and very compliant with all our directions accomplishing a great weight loss. I believe that she is an excellent candidate and she is ready. 2. Preop prescriptions were provided and explained the purpose of each one. Need to be purchased preop. Start Pantoprazole now as you get it from the pharmacy, 1 pill per day. Sucralfate and Zofran are for after surgery as needed. 3. Bowel prep: please do 7 packets ?of Miralax mixing each one with a an 8oz glass of water, crystal light, gatorade zero, or propel ?on 01/11/24 and the same amount on 01/12/24. The Miralax you begin with one packet at a time in 8oz water or crystal light, gatorade zero, or propel ?as early in the day as you can and you do them back to back until you finish them. Continue the protein shakes during? the bowel prep. 4. Needs to purchase 1oz medicine cups . 5. Needs to purchase Children's liquid Tylenol for postop pain control. 6. Avoid aspirin, motrin, Advil, Aleve, Ibuprofen, Naproxyn. Tylenol is OK. 7. She needs to purchase the Celebrate 4:1 protein shakes from the hospital's gift shop. 8. Will do basic preop blood work-up any day between Thursday01/04/24 and Thursday01/08/24 fasting for 12 hours and is scheduled to see the Anesthesiologist prior to the day of surgery. 9. Importance of adherence to postop folllow-up and recommendations was underscored and she understands that. 10. Stop food and bars as of tomorrow 01/04/24 and continue with 5 premade Premier protein shakes (4oz Premier shakes mixed with 4oz almond milk) at 8am-10am, 11am-1pm, 2pm-4pm, 5pm-7pm and at 8pm-10pm 11. No soups, broths or V8 12. The patient's?medical?history has been reviewed and they are considered low risk for post op DVT and therefore DVT prophylaxis is not considered necessary. Travel after surgery was reviewed. The patient has not disclosed any travel plans during the first 30 days after surgery and they have been advised that within the first 30 days after surgery any bus, plane, train or car travel over 2 hours in duration is contraindicated due to the possibility of developing blood clots from immobility. Any travel, needs to include periods of ambulation of 10 minutes in duration every 2 hours.? Patient was instructed to discuss any plans for travel during this period with their bariatric surgeon.? 13. Please take at the day of surgery the following medications: NONE 14. Stop any control pills and don't use them for one month after surgery 15. Absolutely no smoking or vaping, or marijuana until the surgery and for at least the first 4 weeks. Only nicotine patches are allowed. 16. Send me weight measurements on Thursday01/08/24 and then on Thursday01/13/24 the day of surgery before you go to the hospital. 17. Avoid any steroids by mouth for any reason. Let me know if someone prescribes them to you 18. These instructions supersede anything else you read in the handbook, anything you watched in videos or classes or you were told by any other provider. If there is any conflict, you follow the above instructions and nothing else. Orders: Orders Hemoglobin A1c Today E66.9 - Obesity, unspecified C Reactive Protein Today E66.9 - Obesity, unspecified Complete Blood Count Auto Diff Today E66.9 - Obesity, unspecified Insulin Today E66.9 - Obesity, unspecified Type and Screen Today E66.9 - Obesity, unspecified TSH reflex Free T4 Today E66.9 - Obesity, unspecified Comprehensive Met. Panel Today E66.9 - Obesity, unspecified Lipid Panel Today E66.9 - Obesity, unspecified Partial Thromboplastin Time Today E66.9 - Obesity, unspecified Prothrombin Time INR Today E66.9 - Obesity, unspecified Vitamin A Today E50.9 - Vitamin A deficiency, unspecified, E55.9 - Vitamin D deficiency, unspecified Vitamin D 25-OH Total Today E50.9 - Vitamin A deficiency, unspecified, E55.9 - Vitamin D deficiency, unspecified Medications: New pantoprazole 40 mg PO DAILY 90 tabs 0RF K21.9 - Gastro-esophageal reflux disease without esophagitis sucralfate 10 mL PO BID 600 mL 2RF K21.9 - Gastro-esophageal reflux disease without esophagitis ondansetron Only take one every 12 hours as needed if you have nausea 4 mg PO Q12H 20 tabs 0RF nausea and vomiting R11.0 - Nausea polyethylene glycol 3350 Mix each measuring cup with 8oz of water, Crystal light, or Gatorade zero, or Propel and do 7 measuring cups on 01/11/24 and another 7 measuring cups on 01/12/24 17 grams PO DAILY 238 grams 0RF Z01.818 - Encounter for other preprocedural examination
[2024-01-03 08:54] VITALS: BMI 38.3
== END 2024-01-04 16:58 | disposition home or self-care (01) ==
LOC: HO.HBS 08:12
PROVIDERS: Visit Provider Surgery
DX: E66.01 Morbid (severe) obesity due to excess calories (principal); Z68.38 Body mass index [BMI] 38.0-38.9, adult
CPT/HCPCS: 99214

== ENCOUNTER 2024-01-13 06:16 | Inpatient (IN) | payer OTHER, SELFPAY ==
[2024-01-04 07:22] LABS: MANUAL DIFF FLAG NO
[2024-01-04 07:41] LABS: Partial Thromboplastin Time 29.1 SEC (26.0-36.8)
[2024-01-04 08:05] LABS: Basophils Absolute Auto 0.1 X10*3/uL (0.0-0.2); Basophils Percent Auto 0.7 % (0-2); Eosinophils Absolute Auto 0.1 X10*3/uL (0.0-0.4); Eosinophils Percent Auto 1.5 % (0-4); Hematocrit 38.1 % (37.0-47.0); Imm Gran Abs Auto 0.02 X10*3/uL (0.00-0.03); Imm Gran Pct Auto 0.3 % (0.0-0.4); Lymphocytes Absolute Auto 1.6 X10*3/uL (1.2-4.9); Lymphocytes Percent Auto 23.8 % (20-40); Mean Corpuscular HGB Conc 31.5 g/dl (31.0-35.0); Mean Corpuscular Hemoglobin 23.9 pg (27.0-33.0); Mean Corpuscular Volume 75.9 fL (80.0-98.0); Mean Platelet Volume 10.1 fL (9.4-12.3); Monocytes Absolute Auto 0.3 X10*3/uL (0.1-1.2); Monocytes Percent Auto 5.1 % (2-11); Neutrophils Absolute Auto 4.6 x10*3/uL (2.0-8.3); Neutrophils Percent Auto 68.6 % (45-73); Platelet Count 275 X10*3/uL (160-400); Red Blood Count 5.02 X10*6/uL (4.20-5.50); Red Cell Distribution Width 24.1 % (11.0-16.0); White Blood Count 6.7 X10*3/uL (4.8-10.8)
[2024-01-04 08:15] LABS: Estimated Average Glucose 91 mg/dL; Hemoglobin A1c % 4.8 % (<6.0)
[2024-01-04 08:33] LABS: Alanine Aminotransferase 13 U/L (0-31); Albumin Level 3.9 g/dL (3.5-5.0); Alkaline Phosphatase 53 U/L (39-117); Anion Gap 11 (12-20); Aspartate Amino Transferase 15 U/L (5-31); Bilirubin Total 0.3 mg/dL (0.0-1.0); Blood Urea Nitrogen 13 mg/dL (9-16); C Reactive Protein 0.48 mg/dL (< or = 0.50); Calcium 9.7 mg/dL (8.4-10.2); Carbon Dioxide 27 mmol/L (22-29); Chloride 107 mmol/L (96-108); Cholesterol 139 mg/dL (<200); Estimated Glomerular Filt Rate > 60; Glucose Random 94 mg/dL (60-115); HDL Cholesterol 42 mg/dL (>40); LDL Cholesterol Calculated 87 mg/dL (<100); Sodium 141 mmol/L (135-145); Total Protein 6.9 g/dL (6.5-8.0); Triglycerides 52 mg/dL (<150)
[2024-01-04 08:49] LABS: Insulin 8 uU/mL (2-29); TSH reflex Free T4 1.19 uIU/mL (0.32-4.0); Vitamin D 25-OH Total 48.5 ng/mL (>30)
[2024-01-05 12:22] VITALS: BMI 38.4
[2024-01-08 19:08] LABS: Vitamin A 36 mcg/dL (38-98)
--- NOTE | 2024-01-11 15:26 | HO.ANESPROP2 ---
Documented by User: Teresa Shell NP 01/11/24 15:27 HPI - Anesthesia Eval Consult details Narrative: 28yo F for Gastrectomy Sleeve- EGD, possible diaphragmatic hernia, possible ventral hernia, possible open PMFSH Active Problems Active Problems: All Active Problems Vitamin A deficiency (Acute) Cannabis abuse (Acute) Vitamin D deficiency (Acute) Obesity (Acute) DJD (degenerative joint disease) (Acute) Asthma (Acute) GERD (gastroesophageal reflux disease) (Acute) Morbid obesity (Acute) Past Medical History Medical History Back pain Prediabetes Anemia Obesity DJD (degenerative joint disease) Asthma GERD (gastroesophageal reflux disease) Morbid obesity Family History Family History Mother Diabetes Father No problems noted. Surgical History Surgical History History of esophagogastroduodenoscopy (EGD) No history of previous surgery History of Problems with Anesthesia: No Social History Social History Are you a primary professional healthcare representative to a significant other at home: No Do you presently have visiting nurse or other home services: No Alcohol intake: never Patient Tobacco Use Status: Never used Tobacco Use of substances other than those prescribed or required for medical reasons: Yes Substance Use Frequency: Daily Have you been hit, kicked, punched, or otherwise hurt by someone within the past year? If so, by whom?: No Are you DNR?: No Advance Directives: No Advance Directives Information Provided: No Advance Directives on File: No Recently lost weight without trying: No Eating poorly because of decreased appetite: No Nutrition Risks: No Nutritional Risk Patient : No : No Poor oral hygiene: Yes (top tooth broken) Meds Allergies Allergy/AdvReac Type Severity Reaction Status Date / Time No Known Allergies Allergy Verified 01/03/24 08:59 [No Known Allergies*] Home Medications ?Medication ?Instructions ?Recorded ?Confirmed ?Last Taken ?Type pantoprazole 40 mg tablet,delayed 40 mg PO DAILY@0630 01/13/24 01/13/24 01/13/24 History release Exam Height,Weight and Vital Signs: Height 5 ft 3 in Weight 98.43 kg Pertinent Lab Results Pertinent Lab Results: Laboratory Tests 01/04/24 01/04/24 07:09 07:15 WBC 6.7 RBC 5.02 Hgb 12.0 D Hct 38.1 D MCV 75.9 L MCH 23.9 L MCHC 31.5 RDW 24.1 H Plt Count 275 MPV 10.1 Immature Gran % (Auto) 0.3 Neut % (Auto) 68.6 Lymph % (Auto) 23.8 [place] % (Auto) 5.1 Eos % (Auto) 1.5 Baso % (Auto) 0.7 Lymph # (Auto) 1.6 [place] # (Auto) 0.3 Eos # (Auto) 0.1 Baso # (Auto) 0.1 Abs Immat Gran (auto) 0.02 Absolute Neuts (auto) 4.6 Absolute Nucleated RBC 0.000 Nucleated RBC % (auto) 0.0 PT 12.0 INR 1.0 APTT 29.1 Sodium 141 Potassium 4.0 Chloride 107 Carbon Dioxide 27 Anion Gap 11 L BUN 13 Creatinine 0.63 Estim Creat Clear Calc TNP Estimated GFR > 60 Random Glucose 94 Estimat Average Glucose 91 Hemoglobin A1c % 4.8 Insulin Level 8 Calcium 9.7 Total Bilirubin 0.3 AST 15 ALT 13 Alkaline Phosphatase 53 C-Reactive Protein 0.48 Total Protein 6.9 Albumin 3.9 Triglycerides 52 Cholesterol 139 LDL Cholesterol, Calc 87 HDL Cholesterol 42 Vitamin A 36 L 25-OH Vitamin D Total 48.5 TSH 1.19 Blood Type AB Negative Antibody Screen NEGATIVE Narrative Narrative: EKG 10/2023 Vent. Rate : 061 BPM Atrial Rate : 061 BPM P-R Int : 146 ms QRS Dur : 084 ms QT Int : 388 ms P-R-T Axes : 056 009 025 degrees QTc Int : 390 ms Normal sinus rhythm Normal ECG When compared with ECG of 15-NOV-2021 22:45, No significant change was found Assessment and Plan Assessment Anesthesia Assessment: Chart Reviewed Final Anesthetic Review History of Problems with Anesthesia: No Documented by User: Alejandra Bonilla MD 01/13/24 07:43 HPI - Anesthesia Eval Consult details Narrative: 28yo F for EGD, Laparoscopic Sleeve Gastrectomy, possible diaphragmatic hernia repair, possible ventral hernia repair, possible open PMFSH Active Problems Active Problems: All Active Problems Vitamin A deficiency (Acute) Cannabis abuse (Acute) Vitamin D deficiency (Acute) Obesity (Acute) BMI 38.4 DJD (degenerative joint disease) (Acute) Asthma (Acute)- patient denies. Was given inhaler when she had the flu GERD (gastroesophageal reflux disease) (Acute) Morbid obesity (Acute) Past Medical History Medical History Back pain Prediabetes Anemia Obesity DJD (degenerative joint disease) Asthma GERD (gastroesophageal reflux disease) Morbid obesity Family History Family History Mother Diabetes Father No problems noted. Family history of problems with anesthesia: No Surgical History Surgical History History of esophagogastroduodenoscopy (EGD) No history of previous surgery History of Problems with Anesthesia: No Social History Social History Are you a primary professional healthcare representative to a significant other at home: No Do you presently have visiting nurse or other home services: No Alcohol intake: never Patient Tobacco Use Status: Never used Tobacco Use of substances other than those prescribed or required for medical reasons: Yes Substance Use Frequency: Daily Have you been hit, kicked, punched, or otherwise hurt by someone within the past year? If so, by whom?: No Are you DNR?: No Advance Directives: No Advance Directives Information Provided: No Advance Directives on File: No Recently lost weight without trying: No Eating poorly because of decreased appetite: No Nutrition Risks: No Nutritional Risk Patient : No : No Poor oral hygiene: Yes (top tooth broken) Meds Allergies Allergy/AdvReac Type Severity Reaction Status Date / Time No Known Allergies Allergy Verified 01/03/24 08:59 [No Known Allergies*] Home Medications ?Medication ?Instructions ?Recorded ?Confirmed ?Last Taken ?Type pantoprazole 40 mg tablet,delayed 40 mg PO DAILY@0630 01/13/24 01/13/24 01/13/24 History release Exam Height,Weight and Vital Signs: Height 5 ft 3 in Weight 98.43 kg Vital Signs Temp Pulse Resp BP Pulse Ox O2 Del Method 01/13/24 06:37 98.1 F 66 16 116/68 98 Room Air Pertinent Lab Results Pertinent Lab Results: Laboratory Tests 01/04/24 01/04/24 07:09 07:15 WBC 6.7 RBC 5.02 Hgb 12.0 D Hct 38.1 D MCV 75.9 L MCH 23.9 L MCHC 31.5 RDW 24.1 H Plt Count 275 MPV 10.1 Immature Gran % (Auto) 0.3 Neut % (Auto) 68.6 Lymph % (Auto) 23.8 [place] % (Auto) 5.1 Eos % (Auto) 1.5 Baso % (Auto) 0.7 Lymph # (Auto) 1.6 [place] # (Auto) 0.3 Eos # (Auto) 0.1 Baso # (Auto) 0.1 Abs Immat Gran (auto) 0.02 Absolute Neuts (auto) 4.6 Absolute Nucleated RBC 0.000 Nucleated RBC % (auto) 0.0 PT 12.0 INR 1.0 APTT 29.1 Sodium 141 Potassium 4.0 Chloride 107 Carbon Dioxide 27 Anion Gap 11 L BUN 13 Creatinine 0.63 Estim Creat Clear Calc TNP Estimated GFR > 60 Random Glucose 94 Estimat Average Glucose 91 Hemoglobin A1c % 4.8 Insulin Level 8 Calcium 9.7 Total Bilirubin 0.3 AST 15 ALT 13 Alkaline Phosphatase 53 C-Reactive Protein 0.48 Total Protein 6.9 Albumin 3.9 Triglycerides 52 Cholesterol 139 LDL Cholesterol, Calc 87 HDL Cholesterol 42 Vitamin A 36 L 25-OH Vitamin D Total 48.5 TSH 1.19 Blood Type AB Negative Antibody Screen NEGATIVE Laboratory Results - last 24 hr 01/13/24 06:16 Urine Test NEGATIVE Airway Mallampati Class: II TM Dist: >3cm Neck ROM: Full Loose/Missing/Broken Teeth: Yes (Broken tooth top back left. Denies loose or missing teeth) Heart: RRR Lungs: CTAB Assessment and Plan Assessment Anesthesia Assessment: Anesthesia Plan Discussed and Chart Reviewed Final Anesthetic Review Family History of Problems with Anesthesia: No History of Problems with Anesthesia: No NPO: Yes ASA Class: III Final Preanesthetic Review: No Changes in Pt Med Stat, Meds/Allgs Chart Reviewed, Consent Obtained/Reviewed and Anes Risks/Benef Reviewed Patient Risk: Intermediate Procedure Risk: Intermediate Assessment/Block/Sedation in SS: Assess/Block/Sedation-SS Anesthetic Plan Anesthetic Plan: GA Disposition: Standard PACU and Inp. Admit - Standard Bed
[2024-01-13] VITALS (10 sets, daily range): BP systolic 116–158; BP diastolic 62–98; PULSE 62–87; RESP 12–20; TEMP 36–36.7; O2SAT 95–100
[2024-01-13 06:28] LABS: UPreg QC Valid YES; Urine Pregnancy NEGATIVE (NEGATIVE)
[2024-01-13] MEDS: Lactated Ringers 1,000 ML 999 ML IV (07:01)
[2024-01-13] MEDS: Aprepitant 32 MG/4.4 ML VIAL IVPUSH (07:02)
--- NOTE | 2024-01-13 07:09 | PHA.MEDREC ---
Pharmacy Consult ? Medication Reconciliation Pharmacy has completed the medication reconciliation. Reviewed med rec done by nursing
--- NOTE | 2024-01-13 07:35 | PC.NURSE ---
awaiting 24 hour report
--- NOTE | 2024-01-13 07:45 | MHC.SHP ---
Pre-Procedural Eval Section A - 24 Hr Update-Section A only Date of Service: 01/13/24 The patient is an INPATIENT: Yes The patient has been examined within 24 hours of the surgical procedure. The History & Physical has been completed within 30 days and I have reviewed it.: Yes Section B - Complete if H&P > 30 days Chief Complaint: Obesity Relevant Family History (Specify if Yes): No Relevant Social History: None Present Medications: None Medical History: No relevant PMH History of Previous Operations: No relevant previous surgery Allergies: Allergies Allergy/AdvReac Type Severity Reaction Status Date / Time No Known Allergies Allergy Verified 01/03/24 08:59 [No Known Allergies*] Review of Systems Sugical H&P ROS: Negative: Constitution, Cardiovascular, Respiratory, Neurological, Psychiatric, Hem-Onc, Allergic/Immunologic, Gastrointestinal, Genitourinary, Musculoskeletal, Integumentary, Endocrine and Eyes/Ears/Nose/Throat Exam Surgical H&P Exam: Normal: HEENT, Normal: Heart, Normal: Lungs, Normal: Extremities, Normal: Abdomen, Normal: Skin and Normal: Neurological Plan Diagnosis/Plan: Unchanged I have reviewed the history and physical and performed a pertinent physical examination on my patient. No changes have occurred unless specified. Time Spent With Patient Time: Total time managing care of this patient today ____ minutes.
--- NOTE | 2024-01-13 07:53 | P.BOP_ITS ---
Brief Operative Note Date of Service: 01/13/24 Pre-op diagnosis: Severe obesity with comorbidities (see below) Post-op diagnosis: same Procedure: INITIAL PATIENT BMI ON PRESENTATION AT OUR OFFICE: 44 kg/m2 LAST BMI BEFORE SURGERY: 38.1 kg/m2 COMORBIDITIES: GERD, asthma, DJD, liver steatosis, liver fibrosis ?The patient presented to the Weight Management Program with significant obesity that was negatively impacting the patient's comorbidities as listed above.? The program is a phased program with a special focus on preoperative medical weight management to promote substantial weight loss and prepare the patients for the second phase of the program: bariatric surgery. The patient participated in an intensive weekly lifestyle ?intervention and exercise program during which the patient ?has lost between the initial office visit and the last preoperative visit 35.9lbs, or 14.3% of initial actual body weight. It was deemed appropriate for the patient to now have bariatric surgery. In light of the current Covid-19 pandemic and the well documented strong association of obesity and increased risk of worse outcomes if infected with Covid-19 (REFERENCES: https://pubmed.ncbi.nlm.nih.gov/27051890/ ,? https://pubmed.ncbi.nlm.nih.gov/30828337/ ), any delay in undergoing bariatric surgery may lead to the patient's worsening health condition and increased?risk of more severe Covid-19 disease if infected. In addition a recent?study from [facility] published in [employer] on 07/15/2021 ([email or web address]) found that, among patients with obesity, substantial weight loss achieved with surgery was associated with improved outcomes of COVID-19 infection. The findings suggest that obesity can be a modifiable risk factor for the severity of COVID-19 infection. In addition, the patient met the BMI-criteria for bariatric surgery based on the BMI on initial presentation. The patient should not be penalized for achieving such weight loss because ?it is not sustainable long-term without surgical intervention and it was achieved in preparation for bariatric surgery ?under my direction and based on my published research ([email or web address]).[email or web address] and? https://www.soard.org/article/[email or web address](74)95443-X/pdf ) ?that a 10% preoperative weight loss improves long-term weight loss after surgery and reduces perioperative complications.? Insurance carriers such as [facility] have endorsed my recommendations ?and have included in their policies criteria to include a 10% preoperative weight loss requirement. PROCEDURE: Esophago-gastroscopy, laparoscopic lysis of adhesions, laparoscopic sleeve gastrectomy and laparoscopic gastropexy INDICATIONS: This is a 28 year-old female who was electively scheduled for laparoscopic, possibly open sleeve gastrectomy. The risks and complications of the procedure were discussed with the patient in advance, particularly the possibility of ; pulmonary embolism; staple line leak; bleeding; GERD; cardiac, pulmonary, or renal complications; as well as long-term problems such as insufficient weight loss, vitamin deficiency, strictures, or ulcers. The patient understood all the risks, and was in agreement to proceed with surgery. DESCRIPTION OF PROCEDURE: After informed consent was obtained from the patient, the patient was given preoperative antibiotics, and was transferred to the operating room. After successful induction of general anesthesia, pneumatic compression devices were placed on both lower extremities. An upper endoscopy was performed next. The oropharynx and esophagus appeared to be within normal limits. There was no diaphragmatic hernia present consistent with the findings of the preoperative upper GI. The stomach was entered. Then after all fluid and air were suctioned and the stomach was fully decompressed, the scope was withdrawn and secured in the mid esophagus. The patient was then prepped and draped in the usual sterile manner, and abdominal access was established at the right upper quadrant with the Scotty technique. A 12 mm blunt port was inserted, and the abdomen was insufflated with CO2 to a pressure of 15 mmHg. Under direct visualization, additional ports were placed, specifically two 5 mm Versi-step ports to the left upper quadrant, and a 5 mm Versi-Step port to the right upper quadrant. 1% lidocaine plain was used to infiltrate all port sites as well as all fascia defects. Following that, the patient was placed in a steep reverse Trendelenburg position. An additional 5 mm port was placed to the right flank for the Mediflex retractor that was used to retract the left lobe of the liver. The gastro-esophageal fat pad was opened with the ultrasonic device (T gordonbeat, Olympus) and the anterior esophagus and hiatus were exposed. The angle of His was opened with the ultrasonic device the fundus of the stomach from any diaphragmatic and splenic attachments. I then opened the gastrocolic ligament between the transverse colon and the greater curvature of the stomach with the ultrasonic device to enter the lesser sac and facilitate the ligation of the short gastric vessels. I started at a mid-point along the greater curvature and using the Thunderbeat, all short gastric vessels were divided all the way to the angle of His until the left saloni was completely dissected at its entirety. I then divided the gastro-colic ligament distally to a distance of about 3-4 cm proximal to the pylorus. The stomach was then divided transversely with two Endo RENO-45 purple and three RENO-60 articulating purple loads using the codetag stapler and loads. Every effort was made that the gastric sleeve had a tubular shape and an even caliber throughout. Once the sleeve resection was completed, the staple line of the gastric sleeve was reinforced with Hemoclips. The resected stomach was retrieved without difficulty from the Scotty port. A gastropexy was then performed in order to prevent postoperative GERD and partial gastric volvulus. Several interrupted 2.0 Surgidac sutures were placed between the sleeve's staple line and the previously divided greater omentum and gastro-colic ligament using the Endo-Stitch device. ?An upper endoscopy was performed. There was no narrowing at the GE junction. The scope was easily advanced all the way to the pylorus which was clearly visualized. There was no narrowing anywhere and the sleeve's caliber was even throughout. The sleeve's staple line was inspected and there was no evidence of ischemia, bleeding or dehiscence. At that point the gastroscope was withdrawn from the patient?s mouth while we were decompressing the bowel and the stomach from any remaining air. I looked into the lesser sac to see how the sleeve was situating and it was situating well. There was no bleeding from the staple line, spleen, or short gastric vessels. The Mediflex retractor was removed, and the undersurface of the liver was inspected and there was no bleeding. The patient was placed in supine position. I closed the fascial defect of the 12 mm port site with a figure of eight #1 Polysorb suture. Then 30cc Ropivacaine plain with 10 mg of Dexamethasone were used to infiltrate the fascial closure as well as all skin incisions. A total of 7ml Zynrelef was applied in the Scotty wound. At this point, the abdomen was deflated, all ports were removed under direct vision, and no bleeding was noted from any of the port sites. The skin incisions were irrigated with saline and were closed with 4-0 absorbable monofilament sutures. Steri-Strips and OpSites were used to cover all incisions. The patient was extubated and was transferred in stable condition to the recovery room for further care. I was present and performed all douglass parts of the procedure. Mr. Koo was the financial sales assistant. There were no residents to assist with this case. Adrian Shultz MD, PhD, FACS Surgeon: Jeanmarie Shultz MD Anesthesia: GETA, local and other (TAP block and 7ml Zynrelef) Was an Commercial Hvac Technician used for this Procedure?: No Commercial Hvac Technician: Salo Koo Estimated blood loss (mL): 10 IV fluids (mL): 1,800 Urine output (mL): 0 (No Nation to record output) Pathology: other (Stomach) Condition: stable Disposition: PACU
--- NOTE | 2024-01-13 07:55 | P.PNGS_ITS ---
Subjective Subjective Date of Service: 01/14/24 Interval history: Feels well. Mild incisional pain. She is tolerating phase 1 bariatric diet Physical Exam 2 Vital Signs: Vital Signs: Last Vital Signs Temp 98.1 F 01/13/24 06:37 Pulse 66 01/13/24 06:37 Resp 16 01/13/24 06:37 BP 116/68 01/13/24 06:37 Pulse Ox 98 01/13/24 06:37 O2 Del Method Room Air 01/13/24 06:37 BMI result Body Mass Index 38.4 GI: Inspection: Yes normal to inspection, Yes incision (clean, dry and intact) and Yes obesity Palpation (GI): Soft to palpation Extrem: Right lower extremity: normal to inspection (no calf tenderness) L eft lower extremity: normal to inspection (no calf tenderness) Objective Data Active Medications Albuterol Sulfate (Albuterol Sulfate (0.083%) 2.5 Mg/3 Ml Vial.Neb) 2.5 mg INHALE ONCE PRN PRN Reason: Shortness of Breath/Wheezing Fentanyl (Fentanyl Citrate/Pf 100 Mcg/2 Ml Vial) 25 mcg IVPUSH Q5M PRN PRN Reason: Pain, Moderate(Pain Scale 4-6) Stop: 01/13/24 13:30 Hydromorphone HCl (Hydromorphone Hcl 0.5 Mg/0.5 Ml Syringe) 0.25 mg IVPUSH Q5M PRN PRN Reason: Pain, Severe (Pain Scale 7-10) Stop: 01/13/24 13:30 Lactated Ringer's (Lr) 1,000 mls @ 100 mls/hr IVCONT .Q10H [facility] Lactated Ringer's (Lr) 1,000 mls @ 999 mls/hr IV .Q1H1M [facility] Stop: 01/13/24 08:15 Last Admin: 01/13/24 07:01 Dose: 999 mls/hr Documented By: SANTI Ondansetron HCl (Ondansetron Hcl 4 Mg/2 Ml Vial) 4 mg IVPUSH ONCE PRN PRN Reason: Nausea and Vomiting Stop: 01/13/24 13:30 Labs 01/13/24 11:14 01/13/24 11:14 Labs: Laboratory Results - last 24 hr 01/13/24 06:16 Urine Test NEGATIVE Procedures Date of Service Date of Service: 01/14/24 Progress Note: A&P Assessment and plan (1) Obesity: Status: Acute Assessment and Plan: s/p laparoscopic sleeve gastrectomy and gastropexy Doing well Will check am labs and if OK the patient will be discharged home (2) BMI 38.0-38.9,adult: Status: Acute (3) DJD (degenerative joint disease): Status: Acute (4) Asthma: Status: Acute (5) GERD (gastroesophageal reflux disease): Status: Acute (6) Steatosis, liver: Status: Acute (7) Liver fibrosis: Status: Acute (8) S/P laparoscopic sleeve gastrectomy: Status: Acute Time Spent With Patient Time: Total time managing care of this patient today ____ minutes. Quality Stroke Does the patient have a stroke diagnosis?: No VTE Prior VTE?: No VTE Risk Level:: Surgical - moderate VTE Device Contraindication: N/A - Device Ordered VTE Drug Contraindication: Treatment Not Indicated
--- NOTE | 2024-01-13 10:30 | P.DS_ITS ---
DS: Providers Provider Date of Service: 01/14/24 Date of admission: 01/13/24 06:16 Primary care physician: Unknown Physician DS: Diagnosis Discharge Diagnosis (1) Obesity: Status: Acute (2) BMI 38.0-38.9,adult: Status: Acute (3) DJD (degenerative joint disease): Status: Acute (4) Asthma: Status: Acute (5) GERD (gastroesophageal reflux disease): Status: Acute (6) Steatosis, liver: Status: Acute (7) Liver fibrosis: Status: Acute DS: Summary Hospital Course Hospital Course: ADMITTING DIAGNOSIS: obesity, asthma, gerd, anemia ? DISCHARGE DIAGNOSIS: same, s/p laparoscopic sleeve gastrectomy ? PAST SURGICAL HISTORY: none ? PROCEDURE: upper endoscopy, laparoscopic sleeve gastrectomy ? DISCHARGE SUMMARY: ? History of Present Illness: ? The patient is a?28 year-old woman with a BMI of?44.4 kg/m2 and associated co- morbidities as described above. The patient had extensive work-up,lost?34.4 lbs preoperatively and was electively scheduled for laparoscopic, possible open sleeve gastrectomy and gastropexy. Risks and complications of the surgery were discussed with the patient in advance, particularly the possibility of , pulmonary embolism, anastomotic leak, bleeding, bowel injury, GERD, cardiac, renal or pulmonary complications. The patient understood all the risks and was in agreement with the surgical plan. ? Hospital Course: ? The patient underwent an uneventful laparoscopic sleeve gastrectomy with gastropexy on the day of admission. Postoperatively, the patient was transferred to the surgical floor. The patient received IV Acetaminophen and IV dilaudid for pain control. Patient was started on bariatric phase 1 diet POD #0. On postoperative day one, the patient was feeling well without nausea, vomiting, fevers, or tachycardia. The patient had some mild incisional pain and the abdomen was soft. ? On the morning of postoperative day one, the patient was continued on 1 ounce of water or ice every half hour. During the day, the patient did fairly well, having some incisional pain, but able to ambulate adequately and to tolerate liquids well. ? Since the patient is doing well, we decided that the patient was ready to be discharged. The patient was given instructions to follow-up with me next week and to call my office for any fever over 101, persistent abdominal pain, nausea, vomiting, GERD, symptoms of DVT such as calf tenderness, or leg swelling, or pulmonary embolism such as chest pain or shortness of breath. The patient was also instructed to drink 40-60 ounces of liquids per day using the 1-ounce cups. The patient had been given prescriptions for Tylenol for pain, Zofran prn for nausea, and pantoprazole and carafate previously. The patient was encouraged to ambulate and use the incentive spirometer. The patient was allowed to shower, but no baths, and encouraged to stay active at home. All of these instructions were given to the patient personally. All questions were answered and the patient understood all instructions, the instructions were also given to the patient in print. Time Attestation Total time managing care of this patient today: 25 mintues. Discharge Coordination Time (in mins): 25 Quality: Safe Use of Opioids Does Pt have an Active Cancer Diagnosis on the Problem List?: No Quality: Stroke Does the patient have a stroke diagnosis?: No Physical Exam Vital Signs: Vital Signs: Last Vital Signs Temp 98.1 F 01/13/24 06:37 Pulse 66 01/13/24 06:37 Resp 16 01/13/24 06:37 BP 116/68 01/13/24 06:37 Pulse Ox 98 01/13/24 06:37 O2 Del Method Room Air 01/13/24 06:37 BMI result Body Mass Index 38.4 DS: Data Data Completed and Pending Pending studies at discharge: Pending at discharge 01/13/24 09:20 Surgical [PTH] Routine Labs on day of discharge: Laboratory Results - last 24 hr 01/13/24 06:16 Urine Test NEGATIVE Discharge Plan Discharge Anticipated Discharge Date/Time: 01/14/24 10:00 Patient Disposition: Home, Self-Care Discharge Diagnosis: s/p laparoscopic sleeve gastrectomy Referrals: Physician,Unknown J [Primary Care Provider] - 1 Week Discharge Medications: Continued pantoprazole 40 mg tablet,delayed release (DR/EC) 40 mg PO DAILY@0630 sucralfate 100 mg/mL suspension 10 ml PO BID Qty: 600 2RF ondansetron 4 mg tablet,disintegrating 4 mg PO Q12H Qty: 20 0RF Rx Instructions: Only take one every 12 hours as needed if you have nausea Discontinued Vitron-C 65 mg iron- 125 mg tablet,delayed release (DR/EC) 1 tab PO DAILY Qty: 90 0RF Rx Instructions: swallow whole; do not chew/break/dissolve/open cholecalciferol (vitamin D3) 125 mcg (5,000 unit) capsule 125 mcg PO DAILY Qty: 90 0RF vitamin A palmitate 3,000 mcg (10,000 unit) capsule 10,000 unit PO DAILY Qty: 60 0RF polyethylene glycol 3350 17 gram/dose powder 17 g PO DAILY Qty: 238 0RF Rx Instructions: Mix each measuring cup with 8oz of water, Crystal light, or Gatorade zero, or Propel and do 7 measuring cups on 01/11/24 and another 7 measuring cups on 01/12/24 Discharge Orders: Discharge Order (Routine); Ordered 01/14/24 Ordered By: Jeanmarie Shultz Activity on Discharge: No heavy lifting Stand Alone Forms: Patient Portal Discharge page Print Language: American Care Plan Goals: weight loss Health Concerns: obesity Plan of Treatment: No tub baths, sex or returning to work until discussed at first post op catina ointment. No exercise, alcohol, tobacco or illegal drug use. Continue to use incentive spirometer hourly while awake. Walk in home for 5- 10 minutes every 2 hours during the first week. Follow all instructions in the bariatric handbook and call with any questions.Discharge Instructions 1. Please call your doctor or come back to the emergency room should any new symptoms arise. 2. You will receive a courtesy call from [facility] 24-48 hours after discharge. 3. Activity: abstain from alcohol, practice limited stair climbing, no bending, no driving, no exercise, no illicit substances, no lifting, no sex, no tub bath, no work. 4. Diet: continue as discussed with Dr. Shultz. 5. Dressing Change/Wound Care: Your incision is covered by clear bandages and guaze underneath. If the area is tender, you may apply an ice pack for short intervals (no more than 20 minutes on, followed by at least 20 minutes off). Do not apply heat. Do not use creams, lotions, or topical antibiotics unless instructed to do so by your surgeon. These can cause infection or allergic reaction. 6. Call your doctor if: - Your temperature exceeds 101.5 F - You experience excessive pain or swelling - You have an unexpected reaction to medication - You have excessive bleeding - You experience continued vomiting/nausea - Your incision begins to separate - Your incision shows signs of infection such as increased redness, swelling, excessive pain, heat, or drainage (light blood or clear fluid is normal) 7. General instructions: No lifting greater than 5 lbs for 1 week and not more than 20lbs the next 3?weeks. No driving until seen at the office in 5-7 days after surgery. If you do not move your bowels in the next 2 days, please tell?Dr. Shultz. Please walk around your home every hour or two to prevent blood clots from forming in your legs. You do not need to wake from sleeping to walk. Please sleep in a bed or couch to prevent kinking at the hips and knees. Please take your incentive spirometer (your lung sales strategy manager) home with you and use it for the next few days to prevent pneumonia. You may shower, no hot tubs, baths or swimming pools.?Please follow the post op diet instructions you are?given by Dr Shultz? and text me daily at 5-6pm for an update.?If you have any issues or concerns or questions please communicate this to him via text.? The Celebrate shakes have all of the bariatric vitamins you need if you consume these shakes. If you are drinking other protein shakes, you will need to purchase the Celebrate multivitamins and calcium that are available in the hospital gift shop on the first floor of the [facility].??Do not take anything without first discussing with Dr Shultz. Please make sure you are consuming at least 40 ounces of fluids per day starting the?day AFTER your discharge from the hospital. Always drink 1-2 ml per minute using the 5ml?syringe. If you drink faster you may experience?bloating,?gas pain, burping, nausea or heartburn. In that case please slow down your pace and use the syringe to?understand better the?proper?pace and volume of drinking. Do not hesitate to contact the office with any questions at . The patient's medical history has been reviewed and they are considered low risk for post op DVT and therefore DVT prophylaxis is not considered necessary. Travel after surgery was reviewed. The patient has not disclosed any travel plans during the first 30 days after surgery and they have been advised that within the first 30 days after surgery any bus, plane, train or car travel over 2 hours in duration is contraindicated due to the possibility of developing blood clots from immobility. Any travel, needs to include periods of ambulation of 10 minutes in duration every 2 hours.? The patient was instructed to discuss any plans for travel during this period with their bariatric surgeon. Assessment: stable s/p laparoscopic sleeve gastrectomy
[2024-01-13] MEDS: droPERidol 5 MG/2 ML VIAL 0.625 MG IVPUSH (10:57)
[2024-01-13 11:24] LABS: Hematocrit 37.3 % (37.0-47.0); Hemoglobin 12.1 g/dl (12.0-16.0)
[2024-01-13 11:36] LABS: Anion Gap 15 (12-20); Blood Urea Nitrogen 8 mg/dL (9-16); Calcium 9.1 mg/dL (8.4-10.2); Carbon Dioxide 21 mmol/L (22-29); Chloride 107 mmol/L (96-108); Creatinine Clr Calc Pharmacy 158.6; Estimated Glomerular Filt Rate > 60; Glucose Random 128 mg/dL (60-115); Potassium 3.6 mmol/L (3.3-5.1); Sodium 139 mmol/L (135-145)
[2024-01-13] MEDS: ceFAZolin Sodium/Dextrose,Iso 2 GM/50 ML PIGGYBACK IV (13:17)
[2024-01-13] MEDS: Lactated Ringers 1,000 ML 100 ML IVCONT ×2 (13:17→22:54)
[2024-01-13] MEDS: Acetaminophen 1,000 MG/100 ML PIGGYBACK 16.7 MG IV ×2 (13:59→19:45)
[2024-01-13] MEDS: Metoclopramide HCl 10 MG/2 ML VIAL IVPUSH (17:47)
[2024-01-13] MEDS: 0.9 % Sodium Chloride Flush 3 ML SYRINGE IVFLUSH (19:45)
[2024-01-13] MEDS: Famotidine/PF 20 MG/2 ML VIAL IVPUSH (19:45)
[2024-01-14 00:43] VITALS: BP 125/61; PULSE 58; RESP 16; TEMP 36.6; O2SAT 98
[2024-01-14] MEDS: Acetaminophen 1,000 MG/100 ML PIGGYBACK 16.7 MG IV (02:05)
[2024-01-14 04:00] VITALS: BP 138/63; PULSE 50; RESP 16; TEMP 36.2; O2SAT 98
[2024-01-14] MEDS: Famotidine/PF 20 MG/2 ML VIAL IVPUSH (07:00)
[2024-01-14 07:24] VITALS: BP 133/60; PULSE 66; RESP 14; TEMP 36.1; O2SAT 100
[2024-01-14 08:16] LABS: MANUAL DIFF FLAG NO
[2024-01-14 08:22] LABS: Basophils Percent Auto 0.1 % (0-2); Hematocrit 37.2 % (37.0-47.0); Imm Gran Abs Auto 0.05 X10*3/uL (0.00-0.03); Imm Gran Pct Auto 0.4 % (0.0-0.4); Lymphocytes Absolute Auto 1.4 X10*3/uL (1.2-4.9); Lymphocytes Percent Auto 12.4 % (20-40); Mean Corpuscular HGB Conc 32.3 g/dl (31.0-35.0); Mean Corpuscular Hemoglobin 24.6 pg (27.0-33.0); Mean Corpuscular Volume 76.4 fL (80.0-98.0); Mean Platelet Volume 9.9 fL (9.4-12.3); Monocytes Absolute Auto 0.9 X10*3/uL (0.1-1.2); Monocytes Percent Auto 7.7 % (2-11); Neutrophils Percent Auto 79.4 % (45-73); Platelet Count 258 X10*3/uL (160-400); Red Blood Count 4.87 X10*6/uL (4.20-5.50); Red Cell Distribution Width 22.3 % (11.0-16.0); White Blood Count 11.4 X10*3/uL (4.8-10.8)
[2024-01-14 08:41] LABS: Anion Gap 13 (12-20); Blood Urea Nitrogen 7 mg/dL (9-16); Calcium 9.9 mg/dL (8.4-10.2); Carbon Dioxide 23 mmol/L (22-29); Chloride 106 mmol/L (96-108); Creatinine Clr Calc Pharmacy 153.4; Estimated Glomerular Filt Rate > 60; Glucose Random 79 mg/dL (60-115); Potassium 4.1 mmol/L (3.3-5.1); Sodium 138 mmol/L (135-145)
--- NOTE | 2024-01-14 09:37 | MHC.CM.PN ---
Patient lives at home w/ mother. Functionally independent. Denies use of DME or services. No PCP. [facility] provider brochure given to patient. Patient will schedule appt. Pt completed HCP naming agents: 1) mother Jodie Ferrara, 2) friend Fabiola Diaz. Copy placed in chart and copies provided to patient. DP: Medically cleared for dc home self care. Family to transport.
[2024-01-14 10:43] VITALS: O2SAT 96
--- NOTE | 2024-01-14 12:09 | HO.POSTANES ---
Post Anesthesia Evaluation Post Anesthesia Evaluation Date of Service: 01/13/24 Vital Signs: Vital Signs Temp Pulse Resp BP Pulse Ox O2 Del Method 01/14/24 10:43 96 Room Air 01/14/24 07:24 96.9 F 66 14 133/60 100 Room Air 01/14/24 06:24 Room Air 01/14/24 04:00 97.1 F 50 16 138/63 98 Room Air 01/14/24 00:43 97.9 F 58 16 125/61 98 Room Air Anesthesia: General Mental Status: Awake Pain Control: Satisfactory Nausea/Vomiting: None Hydration: Adequate Anesthesia-Related Issues: No Anes. Related Issues
== END 2024-01-14 11:39 | disposition home or self-care (01) | DRG 621 ==
LOC: HO.SSSA 10:32 → HO.S3 10:59
PROVIDERS: Nurse Practitioner; Physician Assistant Surgical; Admitting Provider Surgery; Visit Provider Surgery
PROC: 0DB64Z3 Excision of Stomach, Percutaneous Endoscopic Approach, Vertical (ICD-10-PCS; CPT 43845; principal; 2024-01-13 07:30)
DX: E66.01 Morbid (severe) obesity due to excess calories (principal); K21.9 Gastro-esophageal reflux disease without esophagitis; Z68.38 Body mass index [BMI] 38.0-38.9, adult; D64.9 Anemia, unspecified; J45.909 Unspecified asthma, uncomplicated; M19.90 Unspecified osteoarthritis, unspecified site; K74.00 Hepatic fibrosis, unspecified; K76.0 Fatty (change of) liver, not elsewhere classified; Z79.899 Other long term (current) drug therapy
CPT/HCPCS: 36415; 80048; 80053; 80061; 81025; 82306; 83036; 83525; 84443; 84590; 85014; 85018; 85025; 85610; 85730; 86140; 86850; 86900; 86901; 88304; 88305; 88307; 88342; A4649; C9088; C9145; J0131; J0690; J1100; J1170; J1790; J2250; J2405; J2704; J2765; J2795; J3010; J7120

== ENCOUNTER → 2024-01-13 06:16 | Outpatient (BNV) | payer OTHER, SELFPAY | PROVIDERS: Admitting Provider Surgery; Visit Provider Surgery | DX: E66.9 Obesity, unspecified (principal); Z68.38 Body mass index [BMI] 38.0-38.9, adult | CPT/HCPCS: 43659; 43775; 99024; 99499 ==

== ENCOUNTER 2024-01-19 10:11 | Outpatient (AMB) | payer OTHER, SELFPAY ==
--- NOTE | 2024-01-19 10:33 | A.OFFVIS_ITS ---
VS Expanded 01/19/24 11:02 BP 118/71 Blood Pressure Location Rt brachial Blood Pressure Position Sitting Pulse 71 Pulse Source Pulse Oximeter Temp 96.5 F L Temperature Source Temporal Artery Scan Pulse Oximetry 96 Oxygen Delivery Method Room Air Height 5 ft 3 in Weight 252 lb BMI 44.6 Body Fat % 48.1 Body Fat Mass 121.2 Fat Free Mass 130.8 Visceral Fat Rating 17.0 Body Water % 36.7 Body Water Mass 92.6 Muscle Mass/Score 124.2 Basal Metabolic Rate/Score 1,844 Intake Visit Reasons: (OV) PO LSG 01/13/24 Allergies No Known Allergies [No Known Allergies*] Allergy (Verified 01/19/24 10:51) Medication List - Last Reconciled 01/19/24 by BREANN Jennings pantoprazole 40 mg PO DAILY@629 sucralfate 10 mL PO BID HPI Comments Details: Pt is 6 days s/p LSG 01/13/2024. Tolerating 3 shakes per day, half Premier premade and half almond milk. No nausea with these, had nausea with Celebrate 4:1. Walking outside. [facility] Medical History (Updated 01/13/24 @ 07:57 by Jeanmarie Shultz MD) Back pain Prediabetes Anemia Obesity DJD (degenerative joint disease) Asthma GERD (gastroesophageal reflux disease) Morbid obesity Surgical History (Updated 01/19/24 @ 10:51 by Rita Escobar CMA) S/P laparoscopic sleeve gastrectomy History of esophagogastroduodenoscopy (EGD) No history of previous surgery Family History Mother Diabetes Father No problems noted. Social History Household Members: Family Housing: Apartment Are you a primary resident care coordinator to a significant other at home: No Do you presently have visiting nurse or other home services: No Alcohol intake: never Patient Tobacco Use Status: Never used Tobacco service: No Physical Exam Const General: cooperative, comfortable and no acute distress Orientation/consciousness: patient oriented x3 GI Other: soft, nontender, nondistended, steris c/d/i, no hernia, no masses Neuro General: patient oriented x3 Assessment & Plan Assessment & Plan (1) S/P laparoscopic sleeve gastrectomy: Code(s): Z98.84 - Bariatric surgery status Category: Medical (2) Obesity: Code(s): E66.9 - Obesity, unspecified Category: Medical Qualifiers: Obesity type: due to excess calories Obesity classification: adult class 2 (BMI 35 - 39.9) Serious obesity comorbidity presence: with serious comorbidity Body mass index: BMI 38.0-38.9 Qualified Code(s): E66.01 - Morbid (severe) obesity due to excess calories; Z68.38 - Body mass index [BMI] 38.0- 38.9, adult Plan May shower tomorrow but no bath or submersion of abdomen in water. May start exercise in 2 days.? No abdominal exercises x 6 weeks. Abdominal binder for the next 2 weeks with activity or exercise. Continue meal plan per Dr Taylor until next f/u in 2 weeks. Reviewed pantoprazole and carafate dosing. Reminded of the pace of drinking 2 mL/min or 1oz per 15 min. Will be emailed link for post op video for review. RTC 2 weeks. Patient is obese and is not considered stable at this time. I spent a total of 30 minutes reviewing/updating records, examining the patient and counseling the patient on weight management as detailed above.
[2024-01-19 11:02] VITALS: BP 118/71; PULSE 71; TEMP 35.8; O2SAT 96; BMI 44.6
== END 2024-01-19 11:07 | disposition home or self-care (01) ==
PROVIDERS: Visit Provider Physician Assistant Surgical
DX: E66.01 Morbid (severe) obesity due to excess calories (principal); Z68.38 Body mass index [BMI] 38.0-38.9, adult; Z98.84 Bariatric surgery status
CPT/HCPCS: 99024

== ENCOUNTER → 2024-01-19 10:11 | Outpatient (BNVA) | payer OTHER, SELFPAY | PROVIDERS: Visit Provider Physician Assistant Surgical ==

== ENCOUNTER 2024-02-08 09:57 | Emergency (ER) | payer OTHER, SELFPAY ==
[2024-02-08 10:25] VITALS: BP 119/51; PULSE 61; RESP 18; TEMP 36.6; O2SAT 96; BMI 33.7
--- NOTE | 2024-02-08 10:31 | ED.GENADULT ---
HPI - General Adult General Chief complaint: General Medical Stated complaint: Rash all over body Time Seen by Provider: 02/08/24 10:31 Source: patient Mode of arrival: ambulatory Limitations: no limitations History of Present Illness ED Provider: [facility] narrative: Patient is a 28-year-old female presenting to the emergency department with complaint of pruritic rash to arms and back for the past 10 days. States began on left arm and has since spread to back. Took Benadryl once but has not taken any since. Recently changed laundry detergent from extra to tide. Also recent health they had bariatric surgery and is currently on pantoprazole and sucralfate, unsure if this is related to her symptoms. Denies any difficulty breathing or shortness of breath, swelling to lips or tongue, difficulty swallowing. Denies any abdominal pain, nausea or vomiting. MD complaint: Rash Onset (ago): week(s) Location: back and upper extremity Associated symptoms: denies other symptoms Treatments prior to arrival: other Related Data Home Medications ?Medication ?Instructions ?Recorded ?Confirmed pantoprazole 40 mg tablet,delayed 40 mg PO DAILY@0630 01/13/24 01/19/24 release Previous Rx's ?Medication ?Instructions ?Recorded sucralfate 100 mg/mL oral 10 ml PO BID #600 mL 01/03/24 suspension cetirizine 10 mg capsule 10 mg PO DAILY #30 caps 02/08/24 triamcinolone acetonide 0.1 % 1 appl topical BID #30 grams 02/08/24 topical cream Allergies Allergy/AdvReac Type Severity Reaction Status Date / Time No Known Allergies Allergy Verified 02/08/24 10:29 [No Known Allergies*] Review of Systems Review of Systems: As per HPI. Yes all other systems are reviewed and are negative Constitutional: Constitutional: Reports as per HPI [facility] Past Medical History Medical History (Updated 02/08/24 @ 10:40 by Cha Angel NP) Back pain Prediabetes Anemia Obesity DJD (degenerative joint disease) Asthma GERD (gastroesophageal reflux disease) Morbid obesity Surgical History (Updated 01/22/24 @ 00:02 by Isabel Hernandez) S/P laparoscopic sleeve gastrectomy History of esophagogastroduodenoscopy (EGD) No history of previous surgery Family History Family History Mother Diabetes Father No problems noted. Social History Social History Household Members: Family Housing: Apartment Are you a primary workforce investment act career manager to a significant other at home: No Do you presently have visiting nurse or other home services: No Alcohol intake: never Patient Tobacco Use Status: Never used Tobacco Do you have a plan to hurt others: No Plan service: No Physical Exam ED Vital Signs: Vital Signs - 24 hr 02/08/24 10:25 Temperature 97.8 F Pulse Rate 61 Respiratory Rate 18 Blood Pressure 119/51 L Pulse Oximetry 96 Oxygen Delivery Method Room Air BMI result Body Mass Index 33.7 Vital signs have been reviewed and appear to be correct. Blood pressure normal. Heart rate normal. Respiratory rate normal. Temperature normal. Oxygen saturation normal. Const General: cooperative, healthy appearing and no acute distress Orientation/consciousness: oriented to person, oriented to place, oriented to time and patient oriented x3 Limitations: no limitations HENMT Head: Yes normocephalic and Yes atraumatic Ears: external ears normal General nose exam: Normal external nose present Face and sinus: Yes face symmetric Mouth: oropharynx normal and moist mucous membranes Throat: Yes uvula midline Eyes Pupils: Equal, round and reactive pupils present Neck Neck: Yes normal visual inspection and Yes supple Resp Effort & Inspection: normal respiratory effort and able to speak in complete sentences Auscultation: clear to auscultation bilaterally Cardio Rate: regular rate Rhythm: regular rhythm Heart sounds: S1 normal heart sound present and S2 normal heart sound present GI Palpation (GI): Soft to palpation and nontender Auscultation: normoactive bowel sounds General: Yes no CVA tenderness Back/Spine/Pelvis Back: no CVA tenderness Skin General skin exam: elasticity normal and turgor normal Rashes: rashes noted maculopapular rash bilateral multiple locations size (1-2mm bilat arms and trunk) Neuro General: oriented to person, oriented to place, oriented to time, patient oriented x3, moves all extremities, no focal motor deficits and CN's II-XI intact bilaterally Cranial nerves: Yes Equal, round and reactive pupils present Cognition (Neuro): normal cognition Extrem General: Yes full ROM, Yes no pedal edema and Yes no calf tenderness Psych Mental Status: mental status grossly normal Affect: normal affect Thought process: Normal thought process present Medical Decision Making Medical Decision Making [facility] Narrative: Patient is a 28-year-old female presenting to the emergency department with complaint of pruritic rash to arms and back for the past 10 days. On exam patient is awake, A+Ox3, VS WNL, afebrile, normal neurological exam without focal deficits, physical exam findings as above. Given reported symptoms and physical exam findings, initial differential includes contact dermatitis, medication reaction. No red flag findings concerning for TEN/SJS, DRESS, TTP/DIC, necrotizing fasciitis, meningococcemia, SSSS, TSS, anaphylaxis. Will treat with triamcinolone cream as patient cannot have prednisone due to recent bariatric surgery. Also prescribed cetirizine, advised patient she can increase to BID if needed. Instructed patient to discontinue Tide detergent and to rewash clothes and bedding in and unscented detergent. Will refer to dermatology for ongoing symptoms. Return precautions discussed at bedside. Patient verbalized understanding of and agreement with plan. Differential Diagnosis Differential Diagnoses: The differential diagnosis associated with the presentation includes As per [facility] External Record Review External record reviewed: Inpatient record, Office record and Outpatient record Prescription Management I considered prescription management with: Other Discharge Plan Discharge Clinical Impression: Contact dermatitis Patient Disposition: Home, Self-Care Instructions: Contact Dermatitis (DC) Additional Instructions: You were evaluated in the emergency department today for a rash. You are being treated with a topical steroid cream, please use this as prescribed. We also recommend that you begain taking a daily antihistamine such as cetirizine. You can increase this to twice daily as needed. You should rewash your clothes and bedding with an unscented laundry detergent. Follow up with your primary care provider. You can also follow-up with dermatology if the rash does not resolve. Return to the emergency department if you develop difficulty breathing or shortness of breath, swelling to lips or tongue, difficulty swallowing or any other concerning symptoms. Prescriptions: New triamcinolone acetonide 0.1 % cream 1 appl topical BID Qty: 30 0RF Rx Instructions: Until rash resolves cetirizine 10 mg capsule 10 mg PO DAILY Qty: 30 0RF No Action pantoprazole 40 mg tablet,delayed release (DR/EC) 40 mg PO DAILY@0630 sucralfate 100 mg/mL suspension 10 ml PO BID Qty: 600 2RF Referrals: [facility] [Provider Group] Print Language: Bolivian
[2024-02-08 10:58] VITALS: BP 119/51; PULSE 61; RESP 18; TEMP 36.6; O2SAT 96
== END 2024-02-08 10:59 | disposition home or self-care (01) ==
LOC: HO.ED 10:57
PROVIDERS: Emergency Provider Emergency Medicine
DX: L25.9 Unspecified contact dermatitis, unspecified cause (principal)
CPT/HCPCS: 99282; 99283

== ENCOUNTER 2024-02-18 12:13 | Outpatient (AMB) | payer OTHER, SELFPAY ==
--- NOTE | 2024-02-18 12:07 | MHC.OFFVISWM ---
VS Expanded 02/18/24 12:11 Height 5 ft 3 in Weight 186 lb BMI 32.9 Intake Visit Reasons: (TV) PO LSG 01/13/24 Allergies No Known Allergies [No Known Allergies*] Allergy (Verified 02/08/24 10:29) HPI Comments Details: This?is a?28?yo female who is s/p LSG 01/13/2024. Presents for 1 month post op visit. Weight at last visit on 01/19/2024 was 252 pounds with a BMI of 44.6, weight today is 186 pounds, representing a 66 pound weight loss with a BMI today of 32.6.? No complaints of nausea, emesis, abdominal pain or reflux. Reports constipation. Present meal plan includes: Premier shake 9am-12pm Premier shake 2-5pm Fitcrunch bar 6-9pm taking MVI Exercise routine includes: treadmill 30 min incline workout, 300-400 imelda every day [facility] Medical History (Updated 02/09/24 @ 00:01 by Background David) Back pain Prediabetes Anemia Obesity DJD (degenerative joint disease) Asthma GERD (gastroesophageal reflux disease) Morbid obesity Surgical History (Updated 01/22/24 @ 00:02 by Background David) S/P laparoscopic sleeve gastrectomy History of esophagogastroduodenoscopy (EGD) No history of previous surgery Family History Mother Diabetes Father No problems noted. Social History Household Members: Family Housing: Apartment Are you a primary school child care attendant to a significant other at home: No Do you presently have visiting nurse or other home services: No Alcohol intake: never Patient Tobacco Use Status: Never used Tobacco service: No Telehealth Telehealth Telehealth Platform: Telephone Location of provider rendering services: other Location of patient: address on file Patient Identification confirmed using: Name, : Yes Telehealth method: voice only Patient verbally consented to treatment: Yes Patient verbally consented to billing insurance company: Yes Patient informed of any privacy concerns related to visit: Yes Minutes spent on Phone/Video with Pt.: 12 Assessment & Plan Assessment & Plan (1) S/P laparoscopic sleeve gastrectomy: Code(s): Z98.84 - Bariatric surgery status Category: Surgical (2) Obesity: Code(s): E66.9 - Obesity, unspecified Category: Medical Qualifiers: Obesity type: due to excess calories Obesity classification: adult class 2 (BMI 35 - 39.9) Serious obesity comorbidity presence: with serious comorbidity Body mass index: BMI 38.0-38.9 Qualified Code(s): E66.01 - Morbid (severe) obesity due to excess calories; Z68.38 - Body mass index [BMI] 38.0-38.9, adult Plan Pt doing very well with weight loss on current meal and exercise plan. Will send Colace to pharmacy, can use MoM or Miralax for constipation as well. Continue to text Dr. Taylor weekly with weight measurements. RTC 1 month. I spent a total of 30 minutes reviewing/updating records, examining the patient and counseling the patient on weight management as detailed above. Medications: New docusate sodium 100 mg PO BID 60 caps 2RF
[2024-02-18 12:11] VITALS: BMI 32.9
== END 2024-02-18 12:15 | disposition home or self-care (01) ==
LOC: HO.HBS 12:13
PROVIDERS: Visit Provider Physician Assistant Surgical
DX: E66.01 Morbid (severe) obesity due to excess calories (principal); Z68.32 Body mass index [BMI] 32.0-32.9, adult; Z90.3 Acquired absence of stomach [part of]; Z98.84 Bariatric surgery status
CPT/HCPCS: 99214

== ENCOUNTER → 2024-02-18 12:13 | Outpatient (BNVA) | payer OTHER, SELFPAY | PROVIDERS: Visit Provider Physician Assistant Surgical ==

== ENCOUNTER 2024-03-22 12:54 | Outpatient (AMB) | payer OTHER, SELFPAY ==
--- NOTE | 2024-03-22 12:02 | A.OFFVIS_ITS ---
VS Expanded 03/22/24 12:09 Height 5 ft 3 in Weight 176 lb BMI 31.2 Intake Visit Reasons: TELEPHONE PO LSG 01/13/2024 Allergies No Known Allergies [No Known Allergies*] Allergy (Verified 02/08/24 10:29) Medication List - Last Reconciled 03/22/24 by BREANN Jennings cetirizine 10 mg PO DAILY pantoprazole 40 mg PO DAILY@0630 sucralfate 10 mL PO BID triamcinolone acetonide 0.1% 1 appl topical BID HPI Comments Details: This?is a?28?yo female who is s/p LSG 01/13/2024. Presents for 2 month post op visit. Weight at last visit on 02/17 was 186 pounds with a BMI of 32.9, weight today is 176 pounds, representing a 10 pound weight loss with a BMI today of 31.2.? No complaints of nausea, emesis, abdominal pain or reflux, or constipation. Present meal plan includes: Premier shake x2 Fitcrunch bar has tried some soft solid proteins and tolerated well has tried oatmeal taking MVI Exercise routine includes: treadmill 30 min incline workout, 300-400 imelda every day PFSH Medical History (Updated 02/09/24 @ 00:01 by Background David) Back pain Prediabetes Anemia Obesity DJD (degenerative joint disease) Asthma GERD (gastroesophageal reflux disease) Morbid obesity Surgical History (Updated 01/22/24 @ 00:02 by Background David) S/P laparoscopic sleeve gastrectomy History of esophagogastroduodenoscopy (EGD) No history of previous surgery Family History Mother Diabetes Father No problems noted. Social History Household Members: Family Housing: Apartment Are you a primary acute care nursing assistant to a significant other at home: No Do you presently have visiting nurse or other home services: No Alcohol intake: never Patient Tobacco Use Status: Never used Tobacco service: No Telehealth Telehealth Telehealth Platform: Telephone Location of provider rendering services: practice address Location of patient: address on file Patient Identification confirmed using: Name, : Yes Telehealth method: video Patient verbally consented to treatment: Yes Patient verbally consented to billing insurance company: Yes Patient informed of any privacy concerns related to visit: Yes Minutes spent on Phone/Video with Pt.: 15 Assessment & Plan Assessment & Plan (1) S/P laparoscopic sleeve gastrectomy: Code(s): Z98.84 - Bariatric surgery status Category: Surgical (2) Obesity: Code(s): E66.9 - Obesity, unspecified Category: Medical Qualifiers: Obesity type: due to excess calories Obesity classification: adult class 2 (BMI 35 - 39.9) Serious obesity comorbidity presence: with serious comorbidity Body mass index: BMI 38.0-38.9 Qualified Code(s): E66.01 - Morbid (severe) obesity due to excess calories; Z68.38 - Body mass index [BMI] 38.0- 38.9, adult Plan Pt to continue same meal plan per Dr Taylor, try to avoid oatmeal, continue exercise with calorie goal 2000/week, cleared for all activities including lifting/corework. Continue PPI for remainder of 90 day course, pt will monitor reflux sx once completed. RTC 1 month. I spent a total of 30 minutes reviewing/updating records, examining the patient and counseling the patient on weight management as detailed above.
[2024-03-22 12:09] VITALS: BMI 31.2
== END 2024-03-22 13:02 | disposition home or self-care (01) ==
LOC: HO.HBS 12:54
PROVIDERS: Visit Provider Physician Assistant Surgical
DX: E66.01 Morbid (severe) obesity due to excess calories (principal); Z68.38 Body mass index [BMI] 38.0-38.9, adult; Z98.84 Bariatric surgery status
CPT/HCPCS: 99024

== ENCOUNTER → 2024-03-22 12:54 | Outpatient (BNVA) | payer OTHER, SELFPAY | PROVIDERS: Visit Provider Physician Assistant Surgical | DX: Z98.84 Bariatric surgery status (principal); E66.01 Morbid (severe) obesity due to excess calories; Z68.38 Body mass index [BMI] 38.0-38.9, adult ==

== ENCOUNTER 2024-05-04 12:12 | Outpatient (AMB) | payer OTHER, SELFPAY ==
--- NOTE | 2024-05-04 12:00 | A.OFFVIS_ITS ---
VS Expanded 05/04/24 12:06 Height 5 ft 3 in Weight 164 lb BMI 29.0 Intake Visit Reasons: TELEPHONE PO LSG 01/13/24 Allergies No Known Allergies [No Known Allergies*] Allergy (Verified 02/08/24 10:29) Medication List - Last Reconciled 05/04/24 by BREANN Jennings cetirizine 10 mg PO DAILY triamcinolone acetonide 0.1% 1 appl topical BID HPI Comments Details: This?is a?28?yo female who is s/p LSG 01/13/2024. Presents for 3.5 month post op visit. Weight at last visit on 03/22/2024 was 176 pounds with a BMI of 31.2, weight today is 164 pounds, representing a 12 pound weight loss with a BMI today of 29.? No complaints of nausea, emesis, abdominal pain or reflux, or constipation. Present meal plan includes: has been having breakfast- solid food, or will have a Premier shake Premier shake x2 Fitcrunch bar sometimes sometimes has solid food for dinner taking MVI Exercise routine includes: treadmill 30 min incline workout, 300-400 imelda every day [facility] Medical History (Updated 05/04/24 @ 12:10 by BREANN Jennings) Back pain Prediabetes Anemia Obesity DJD (degenerative joint disease) Asthma GERD (gastroesophageal reflux disease) Morbid obesity Surgical History (Updated 01/22/24 @ 00:02 by Isabel Hernandez) S/P laparoscopic sleeve gastrectomy History of esophagogastroduodenoscopy (EGD) No history of previous surgery Family History Mother Diabetes Father No problems noted. Social History Household Members: Family Housing: Apartment Are you a primary healthcare network consultant to a significant other at home: No Do you presently have visiting nurse or other home services: No Alcohol intake: never Patient Tobacco Use Status: Never used Tobacco service: No Telehealth Telehealth Telehealth Platform: Telephone Location of provider rendering services: other Location of patient: address on file Patient Identification confirmed using: Name, : Yes Telehealth method: voice only Patient verbally consented to treatment: Yes Patient verbally consented to billing insurance company: Yes Patient informed of any privacy concerns related to visit: Yes Assessment & Plan Assessment & Plan (1) S/P laparoscopic sleeve gastrectomy: Code(s): Z98.84 - Bariatric surgery status Category: Surgical (2) Overweight: Code(s): E66.3 - Overweight Category: Medical Plan Pt doing well, happy with her meal plan and flexibility, discussed ideal protein goal 65-70g/day. Her weight loss goal is ~150lbs. No reflux sx, off carafate and PPI. RTC 4-6 weeks, can order 6mo bloodwork at that time. I spent a total of 30 minutes reviewing/updating records, examining the patient and counseling the patient on weight management as detailed above.
[2024-05-04 12:06] VITALS: BMI 29.0
== END 2024-05-04 12:56 | disposition home or self-care (01) ==
LOC: HO.HBS 12:12
PROVIDERS: Visit Provider Physician Assistant Surgical
DX: E66.3 Overweight (principal); Z68.29 Body mass index [BMI] 29.0-29.9, adult; Z90.3 Acquired absence of stomach [part of]; Z98.84 Bariatric surgery status
CPT/HCPCS: G2252

== ENCOUNTER → 2024-05-04 12:12 | Outpatient (BNVA) | payer OTHER, SELFPAY | PROVIDERS: Visit Provider Physician Assistant Surgical ==

== ENCOUNTER 2024-06-02 12:12 | Outpatient (AMB) | payer OTHER, SELFPAY ==
--- NOTE | 2024-06-02 12:10 | A.OFFVIS_ITS ---
VS Expanded 06/02/24 12:12 Height 5 ft 3 in Weight 157 lb BMI 27.8 Intake Visit Reasons: TELEPHONE PO LSG 01/13/2024 Allergies No Known Allergies [No Known Allergies*] Allergy (Verified 02/08/24 10:29) Medication List - Last Reconciled 06/02/24 by BREANN Jennings cetirizine 10 mg PO DAILY triamcinolone acetonide 0.1% 1 appl topical BID HPI Comments Details: This?is a?28?yo female who is s/p LSG 01/13/2024. Presents for 5 month post op visit. Weight at last visit on 05/04/2024 was 164 pounds with a BMI of 29, weight today is 157 pounds, representing a 7 pound weight loss with a BMI today of 27.8.? No complaints of nausea, emesis, abdominal pain or reflux, or constipation. Present meal plan includes: has been having breakfast- solid food, or will have a Premier shake Premier shake x2 Fitcrunch bar sometimes sometimes has solid food for dinner taking MVI Exercise routine includes: treadmill 30 min incline workout, 300-400 imelda every day [facility] Medical History (Updated 05/04/24 @ 12:10 by BREANN Jennings) Back pain Prediabetes Anemia Obesity DJD (degenerative joint disease) Asthma GERD (gastroesophageal reflux disease) Morbid obesity Surgical History (Updated 01/22/24 @ 00:02 by Isabel Hernandez) S/P laparoscopic sleeve gastrectomy History of esophagogastroduodenoscopy (EGD) No history of previous surgery Family History Mother Diabetes Father No problems noted. Social History Household Members: Family Housing: Apartment Are you a primary clinical care manager to a significant other at home: No Do you presently have visiting nurse or other home services: No Alcohol intake: never Patient Tobacco Use Status: Never used Tobacco service: No Telehealth Telehealth Telehealth Platform: Telephone Location of provider rendering services: practice address Location of patient: address on file Patient Identification confirmed using: Name, : Yes Telehealth method: voice only Patient verbally consented to treatment: Yes Patient verbally consented to billing insurance company: Yes Patient informed of any privacy concerns related to visit: Yes Minutes spent on Phone/Video with Pt.: 14 Assessment & Plan Assessment & Plan (1) Overweight: Code(s): E66.3 - Overweight Category: Medical (2) S/P laparoscopic sleeve gastrectomy: Code(s): Z98.84 - Bariatric surgery status Category: Surgical Plan Pt to continue same meal plan per Dr Taylor, exercise regimen. Will order 6mo labs, pt will have them drawn 2 weeks prior to next appt. RTC 2 months. I spent a total of 30 minutes reviewing/updating records, examining the patient and counseling the patient on weight management as detailed above. Orders: Orders Insulin Today Z98.84 - Bariatric surgery status Hemoglobin A1c Today Z98.84 - Bariatric surgery status Complete Blood Count Auto Diff Today Z98.84 - Bariatric surgery status Lipid Panel Today Z98.84 - Bariatric surgery status IRON PROFILE Today Z98.84 - Bariatric surgery status Vitamin B12 and Folate Today Z98.84 - Bariatric surgery status Zinc Today Z98.84 - Bariatric surgery status C Reactive Protein Today Z98.84 - Bariatric surgery status TSH reflex Free T4 Today Z98.84 - Bariatric surgery status Comprehensive Met. Panel Today Z98.84 - Bariatric surgery status Vitamin B1 Today Z98.84 - Bariatric surgery status Vitamin A Today Z98.84 - Bariatric surgery status Ferritin Today Z98.84 - Bariatric surgery status Vitamin D 25-OH Total Today Z98.84 - Bariatric surgery status Parathyroid Hormone Intact Today Z98.84 - Bariatric surgery status
[2024-06-02 12:12] VITALS: BMI 27.8
== END 2024-06-02 13:04 | disposition home or self-care (01) ==
LOC: HO.HBS 12:12
PROVIDERS: Visit Provider Physician Assistant Surgical
DX: E66.3 Overweight (principal); Z98.84 Bariatric surgery status
CPT/HCPCS: 99214

== ENCOUNTER → 2024-06-02 12:12 | Outpatient (BNVA) | payer OTHER, SELFPAY | PROVIDERS: Visit Provider Physician Assistant Surgical ==